=== PATIENT | male | born 1940 | race Caucasian/White ===

== ENCOUNTER 2022-08-07 10:45 | Day surgery (SDC) | payer MEDICARE, SELFPAY ==
[2022-08-07] VITALS (20 sets, daily range): BP systolic 94–134; BP diastolic 51–88; PULSE 68–74; RESP 16; TEMP 35.9–36.8; O2SAT 93–100; BMI 32.9
[2022-08-07] MEDS: ACETAMINOPHEN 500 MG TABLET 1000 MG PO ×3 (11:25→23:54)
[2022-08-07] MEDS: OXYCODONE (CR) 10 MG TAB.ER.12H PO (11:25)
[2022-08-07] MEDS: CELECOXIB 200 MG CAPSULE PO ×2 (11:25→20:57)
[2022-08-07] MEDS: fentaNYL 100 MCG/2 ML inj IVP (11:52)
[2022-08-07] MEDS: MIDAZOLAM HCL 1 MG/ML inj IVP (11:52)
--- NOTE | 2022-08-07 11:59 | P.NB_ITS ---
Nerve Block Nerve Block Time Seen by Provider: 11:50 Date Seen: 08/07/22 Type of block requested by surgeon for post-operative analgesia: adductor canal Side: left Time out performed: Yes Verification of patient name: Yes Verification of date of : Yes Site marking: site marked Name of person performing procedure: Jose Continuous monitoring Was continuous monitoring of O2 sat, B/P, cafeteria monitor, recorded every 15 minutes?: Yes Procedure Checklist: sterile prep, needles and gloves Ultrasound guided. Images saved: Yes Medications given in 5ml increments after negative aspiration: Ropivicaine %: 0.5 mL: 20 Needle gauge: 20 Decadron (mg): 10 Precedex (mcg): 25 Patient tolerated procedure well: Yes Additional comments: Needle noted adjacent to nerve Block Charges Block Charge (with Pro Fee): Femoral Nerve Use of Ultrasound Machine for Block: Yes- US Guidance/pain block
--- NOTE | 2022-08-07 11:59 | W.PM.NB ---
Nerve Block Nerve Block Time Seen by Provider: 11:50 Date Seen: 08/07/22 Type of block requested by surgeon for post-operative analgesia: geniculars Side: left Time out performed: Yes Verification of patient name: Yes Verification of date of : Yes Site marking: site marked Name of person performing procedure: Jose Continuous monitoring Was continuous monitoring of O2 sat, B/P, manager monitoring, recorded every 15 minutes?: Yes Procedure Checklist: sterile prep, needles and gloves Medications given in 5ml increments after negative aspiration: Ropivicaine %: 0.5 mL: 9 Needle gauge: 25 Patient tolerated procedure well: Yes Block Charges Block Charge (with Pro Fee): Genicular Nerve Block Use of Ultrasound Machine for Block: No
--- NOTE | 2022-08-07 12:24 | SUR.PREOP ---
TIME?OUT:?1150 PT/RN/MDA?VERIFICATION?OF?SURGICAL?SITE,?PROCEDURE,?AND?CONSENT OBTAINED?PRIOR?TO?INVASIVE?PROCEDURE.
[2022-08-07] MEDS: LACTATED RINGERS 1000 ML 1,000 ML 100 ML IV (12:26)
[2022-08-07] MEDS: CEFAZOLIN 2 GM INJ IVP (12:30)
--- NOTE | 2022-08-07 13:31 | CRLHL7_ITS ---
For Patients: As a result of the Cures Act, medical imaging exams and procedure reports are released immediately into your electronic medical record. You may view this report before your referring provider. If you have questions, please contact your health care provider. Indication: Postop total knee arthroplasty. Technique: Two views. Comparison: None. Findings/Impression: Post surgical change of total knee arthroplasty. Prosthesis components are in expected position. No evidence of fracture. Postsurgical subcutaneous gas and joint effusion. No radiopaque foreign body. Dictated by Pedrito Rachel MD @ 08/07/2022 7:54:32 PM (Electronically Signed)
--- NOTE | 2022-08-07 13:35 | P.ORPRC_ITS ---
Procedure Note Date of procedure: 08/07/22 Procedure: SURGEON: Gene Bedoya MD LIVESTOCK FEEDER: ROMIE Mitchell PREOPERATIVE DIAGNOSIS: Left knee osteoarthritis POSTOPERATIVE DIAGNOSIS: Left knee osteoarthritis NAME OF OPERATION: Left total knee arthroplasty ANESTHESIA: Spinal ESTIMATED BLOOD LOSS: 0 mL COMPLICATIONS: None SPECIMENS: None DRAINS: None PREOPERATIVE ANTIBIOTICS: Ancef 2 grams IMPLANTS: 1. J&J Attune # 8 posterior stabilized femur 2. # 8 fixed-bearing tibia 3. # 8 posterior stabilized, 5 mm fixed-bearing polyethylene 4. 41 patella INDICATIONS: The patient is a 81-year-old male with a longstanding history of severe, unrelenting left knee pain secondary to end-stage (grade IV) left knee osteoarthritis. Despite appropriate nonoperative management, including activity modification, anti-inflammatories, [id number] pain medication, bracing, physical therapy, and injections they continue to have pain and disability. Operative intervention was offered. The risks, benefits and expected outcomes were discussed in detail. These included but were not limited to: Infection, bleeding, injury to blood vessel or nerve, venous thromboembolism. All questions were answered to their satisfaction. Use of an nutrition services assistant was necessary throughout the case for patient positioning and safety, soft tissue retraction, and closure. PROCEDURE: Spinal anesthesia was administered. The patient was placed supine on the operating table. The nutrition services assistant made sure the patient was positioned appropriately. The lower extremity was prepped and draped in the usual sterile fashion. The limb was exsanguinated with the Faisal bandage. The pneumatic tourniquet was inflated to 300 mmHg. A standard anterior incision was made with the knee in flexion. Subcutaneous dissection was sharply taken through fascial layer #1. Full-thickness medial and lateral flaps were elevated. The nutrition services assistant retracted the soft tissues and protected them throughout the case. A standard medial parapatellar approach was made. The patella was everted. The infrapatellar fat pad was preserved. The menisci and cruciate ligaments were sharply d?brided. Marginal osteophytes were d?brided with the rongeur. The drill was used to penetrate the femoral canal. The canal was aspirated and irrigated with pulse lavage. The intramedullary femoral guide was placed for a 5-degree valgus cut, removing 10 mm off the distal femur. The saw was used to make the cut. Whitesides line and the trans epicondylar axis were marked. The femoral sizing guide was pinned onto the distal femur. Three degrees of external rotation nicely parallels the transepicondylar axis. Pins were placed for posterior referencing. The four-in-one cutting guide was pinned onto the distal femur. The anterior, posterior, and chamfer cuts were made. The nutrition services assistant protected the collateral ligaments. The box cutting guide was pinned. The box cuts were made. The boxed trial was placed and was an excellent fit. Drill holes for the lugs were made. Attention was then turned to the proximal tibia. The extramedullary tibial guide was placed for a neutral varus/valgus cut with 5 degrees of posterior slope, removing 1 mm based off the medial tibial surface. The nutrition services assistant protected the collateral ligaments and the neurovascular bundle. The saw was used to make the cut. Trial components were placed. The knee was nicely balanced in both flexion and extension. The trial components were removed. The tray was placed in appropriate rotation, parallel to our tibial cutting pins. It was pinned by the nutrition services assistant and the drill and the punch were used. The tray was removed. The punch was used again. We placed a bone plug in the femoral canal. Attention was then turned to the patella. [place] patellar thickness was 25 mm. The lobster claw resection guide was used with the 9.5 mm pepe. The saw was us ed to make the cut. Drill holes were made by the nutrition services assistant. The trial was placed and was an excellent fit. Cancellous surfaces were irrigated with pulse lavage and thoroughly dried by the nutrition services assistant. We cemented the tibial component, then the femoral component. A trial spacer was placed. The knee was brought into full extension. We then cemented the patellar component. Excessive cement was removed. The cement was allowed to harden. We impacted the 5 mm polyethylene onto the tibial tray. The knee was taken through a range of motion and was found to be nicely balanced in both flexion a nd extension. The patella tracks centrally. The nutrition services assistant did a three minute dilute Betadine solution soak. The nutrition services assistant irrigated the wound with 3 liters of normal saline via pulse lavage. The a ssistant reapproximated the extensor mechanism with #1 Vicryl in an interrupted nazjsi-sj-hnnku fashion. The nutrition services assistant then ran the extensor mechanism with a #1 PDO Stratafix. The nutrition services assistant closed the subcutaneous tissues with a 3-0 Stratafix and the skin with a running 3-0 Stratafix in a subcuticular fashion. Glue was used to seal the skin. The nutrition services assistant placed a dry dressing, JAYLEN stocking, and Polar Care. Sponge and needle counts were correct x2. The patient tolerated the procedure well. There were no apparent complications. They were carefully transferred to the hospital bed and taken to the postanesthesia care unit in satisfactory condition. PLAN: The patient will be mobilized with physical therapy. The patient is on Coumadin. Therefore, his usual dose of Coumadin can be restarted tomorrow. They will be discharged to home once medically appropriate.
--- NOTE | 2022-08-07 14:17 | W.ANESCHARGE ---
Anesthesia Charges Start Date/Time Anesthesia Start Date: 08/07/22 Anesthesia Start Time: 12:15 Stop Date/Time Anesthesia Stop Date: 08/07/22 Anesthesia Stop Time: 14:13 Summary Emergency: No Extremes of Age: Over 70-CPT 28469
--- NOTE | 2022-08-07 15:31 | W.ANESCHARGE ---
Anesthesia Charges Start Date/Time Anesthesia Start Date: 08/07/22 Anesthesia Start Time: 12:15 Stop Date/Time Anesthesia Stop Date: 08/07/22 Anesthesia Stop Time: 14:13 Summary Emergency: No Extremes of Age: Over 70-CPT 30461
[2022-08-07] MEDS: LACTATED RINGERS 1000 ML 1,000 ML 75 ML IV (15:52)
[2022-08-07] MEDS: OXYCODONE 5 MG TABLET PO ×3 (16:43→20:57)
[2022-08-07] MEDS: CEFAZOLIN 2 GM in 0.9 % SODIUM CHLORIDE Mini-bag 100 ML IVPB (17:38)
--- NOTE | 2022-08-07 19:31 | PM.IMCN1 ---
Date of Consult Consult date: 08/07/22 Primary Care Provider: Ervin Castañeda MD Consult Narrative Narrative: HOSPITALIST CONSULT Hospital Day # 1 Post Op Day # 0 NAME OF OPERATION:? Left total knee arthroplasty ANESTHESIA:? Spinal ESTIMATED BLOOD LOSS:? 0 mL COMPLICATIONS:? None The hospital medicine team was asked by the ortho team to manage the patient's hx of AFIB/SVT, s/p ablations, cardiac pacemaker, prostate cancer, Factor IV Leiden deficiency, PE/DVT hx on oral coumadin history. Pelon is seen on the floor with bedside. He is laughing, comfortable and insightful. I updated the [facility] histories and Medications and Allergies in the Expanse tabs REVIEW OF SYSTEMS: 12-point ROS completed with patient and negative unless otherwise stated in HPI or below. PHYSICAL EXAM: CODE STATUS: FULL CODE CONSTITUTIONAL: Conversive, good historian. A/O. Knows setting and context. VITAL SIGNS: see record. HEENT: Normocephalic, atraumatic. PERRL, EOMI, conjunctivae pink, no scleral icterus. Ears and nose externally normal. Pharynx normal. NECK: No JVD. No carotid bruit, no thyromegaly, no adenopathy. CHEST: Clear to auscultation bilaterally HEART: No harsh murmurs. S1/S2. ABDOMEN: Flat, soft, nontender. Normal bowel sounds. Moderately obese. EXTREMITIES: No edema. MUSCULOSKELETAL: no obvious hematoma; ice wrap on. NVI, lower left extremity. NEURO: Cranial nerves intact. Normal affect. No gross deficits. Speech intelligible. SKIN: No rashes, petechiae, concerning changes PSYCHIATRIC: Euthymic. 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 Chronic anticoagulation Diverticulitis Factor V Leiden mutation H/O prostate cancer History of pulmonary embolism Lupus anticoagulant positive HONORIO (obstructive sleep apnea) Pacemaker Surgical History History of appendectomy (~2002) History of bunionectomy of left great toe (~1984) History of medial meniscus repair of left knee (1962) Hx of total knee arthroplasty Status post ablation of atrial fibrillation Family History Father Prostate cancer Brother Prostate cancer Kidney failure Heart attack Diabetes High blood pressure Mother COPD (chronic obstructive pulmonary disease) High blood pressure Social History Smoking Status: Former smoker What tobacco products do you use: cigarettes Years smoked: 5 Smoking quit date/years: >15 years ago Do you use any of these nicotine containing products: None How often do you have a drink containing alcohol: 2-3 times a week Alcohol type: beer How many standard drinks containing alcohol do you have on a typical day: 1 or 2 How often do you have six or more drinks on one occasion: Never AUDIT-C Alcohol total score: 3 Non-prescribed substance use: denies use Caffeine: Yes (~6 cups/day) Meds Home Medications and Allergies Home Medications Medication Instructions Recorded Confirmed Type acetaminophen 650 mg 1,300 mg PO BID 08/06/22 08/06/22 History tablet,extended release (8 Hour Pain Reliever) atorvastatin 20 mg tablet 20 mg PO HS 08/06/22 08/06/22 History epinephrine 0.3 mg/0.3 mL 0.3 ml IM Q5-15M PRN 08/06/22 08/06/22 History injection, auto-injector (Auvi-Q) famotidine 20 mg tablet 20 mg PO BID 08/06/22 08/06/22 History ibuprofen 125 mg-acetaminophen 250 2 tab PO BID PRN 08/06/22 08/06/22 History mg tablet (Advil Dual Action) pantoprazole 40 mg tablet,delayed 40 mg PO DAILY 08/06/22 08/06/22 History release tamsulosin 0.4 mg capsule 0.8 mg PO HS 08/06/22 08/06/22 History warfarin 5 mg tablet 5 - 7.5 mg PO DAILY 08/06/22 08/06/22 History Allergies Allergy/AdvReac Type Severity Reaction Status Date / Time bee venom protein (honey bee) Allergy Intermediate Verified 07/31/22 08:34 Exam Const: Vital Signs, click to edit/add: Vital Signs - 24 hr 08/07/22 11:20 08/07/22 11:50 08/07/22 12:00 Temperature 98.3 F Pulse Rate 70 70 70 Pulse Rate [Left P ulse Oximeter] Respiratory Rate 16 16 16 Blood Pressure 132/86 134/83 119/77 Blood Pressure [Ri ght Arm] Pulse Oximetry 99 100 100 Oxygen Delivery Me thod Room Air Nasal Cannula Nasal Cannula Oxygen Flow Rate 2 2 08/07/22 14:10 08/07/22 14:15 08/07/22 14:20 Temperature 97.7 F Pulse Rate 70 70 70 Pulse Rate [Left P ulse Oximeter] Respiratory Rate 16 16 16 Blood Pressure 109/74 106/71 109/74 Blood Pressure [Ri ght Arm] Pulse Oximetry 97 97 97 Oxygen Delivery Me thod Room Air Room Air Room Air Oxygen Flow Rate 08/07/22 14:25 08/07/22 14:30 08/07/22 14:35 Temperature Pulse Rate 69 71 68 Pulse Rate [Left P ulse Oximeter] Respiratory Rate 16 16 16 Blood Pressure 107/74 110/75 115/77 Blood Pressure [Ri ght Arm] Pulse Oximetry 97 95 95 Oxygen Delivery Me thod Room Air Room Air Room Air Oxygen Flow Rate 08/07/22 14:47 08/07/22 15:00 08/07/22 15:15 Temperature 96.6 F L Pulse Rate 70 Pulse Rate [Left P ulse Oximeter] 70 70 Respiratory Rate 16 16 16 Blood Pressure Blood Pressure [Ri ght Arm] 120/74 111/76 99/72 Pulse Oximetry 98 93 Oxygen Delivery Me thod Room Air Room Air Room Air Oxygen Flow Rate 08/07/22 15:30 08/07/22 15:45 08/07/22 16:00 Temperature Pulse Rate Pulse Rate [Left P ulse Oximeter] 70 70 70 Respiratory Rate 16 16 16 Blood Pressure Blood Pressure [Ri ght Arm] 107/73 118/88 103/71 Pulse Oximetry 99 98 97 Oxygen Delivery Me thod Room Air Room Air Room Air Oxygen Flow Rate 08/07/22 16:30 08/07/22 17:00 Temperature Pulse Rate Pulse Rate [Left P ulse Oximeter] 70 72 Respiratory Rate 16 16 Blood Pressure Blood Pressure [Ri ght Arm] 94/51 L 115/66 Pulse Oximetry 98 99 Oxygen Delivery Me thod Room Air Room Air Oxygen Flow Rate Assessment and Plan Assessment and plan (1) Hx of total knee arthroplasty: Problem comment: Aureliano 08/04 -hospital medicine team is happy to follow the patient along through to discharge. I am going to restart his Coumadin as he has had a stable postoperative course. We will start his Lovenox bridge in the morning. I will also start telemetry for his history of AFib, SVT and ablation with pacemaker. I expect discharge tomorrow with his . Status: Acute (2) Factor V Leiden mutation: Problem comment: Noted. Status: Acute (3) Chronic anticoagulation: Problem comment: Noted. Coumadin with Lovenox bridge. Status: Acute (4) History of pulmonary embolism: Status: Acute (5) Atrial fibrillation and flutter: Problem comment: Adding telemetry Status: Acute (6) HONORIO (obstructive sleep apnea): Status: Acute (7) Pacemaker: Status: Acute (8) Lupus anticoagulant positive: Status: Acute
--- NOTE | 2022-08-07 19:43 | PC.NURSE ---
PATIENT PLEASANT AND COOPERATIVE, UP ASSIST OF 1 WITH WALKER AND BELT TOLERATING WELL, DRESSING TO LEFT KNEE CDI, CYRO CUFF TO SITE, FAMILY EDUCATED ON HOW TO USE THE CYRO CUFF AT HOME, RATING PAIN IN LEFT KNEE 1-2/10 BEING MANAGED WITH PRN OXYCODONE, FAMILY PRESENT AT BEDSIDE AND SUPPORTIVE, TOLERATING REGULAR DIET WITHOUT NAUSEA OR VOMITING.
--- NOTE | 2022-08-07 20:22 | PC.NURSE ---
Per MD request, discussed Lovenox with patient. He states he has enough Lovenox at home to dose himself through at least Saturday. Dr. Rojas aware. Informed him that a prescription is at his pharmacy if he were to need any additional doses.
[2022-08-07] MEDS: SENNOSIDES 1 TAB TABLET 2 TAB PO (20:57)
[2022-08-07] MEDS: WARFARIN 5 MG TABLET PO (20:57)
--- NOTE | 2022-08-07 22:25 | PC.NURSE ---
[id number] Pt doing very well this evening, ambulating with walker, GB, SBA, tolerates activity well. Pain controlled with prn oral pain medications, pt expressed concerns about becoming addicted, educated pt on appropriate pain med use and pt more relaxed. Ice to L knee, dressing C/D/I, pulses and sensation present. denies N/V
[2022-08-08] MEDS: OXYCODONE 5 MG TABLET PO ×3 (00:57→11:46)
[2022-08-08] MEDS: CEFAZOLIN 2 GM in 0.9 % SODIUM CHLORIDE Mini-bag 100 ML IVPB ×2 (03:11→10:51)
[2022-08-08 03:46] VITALS: BP 110/68; PULSE 73; RESP 16; TEMP 36.5; O2SAT 98
[2022-08-08 04:28] VITALS: PULSE 72
--- NOTE | 2022-08-08 06:20 | PC.NURSE ---
Shift note: Surgical dressing is C/D/I, pulses strong, sensation present. Pt is up with assist of 1 belt and walker. No c/o nausea, voiding, pain 4/10 treated per eMAR with relief to 1-2/10.
[2022-08-08] MEDS: ACETAMINOPHEN 500 MG TABLET 1000 MG PO ×2 (06:34→11:47)
[2022-08-08 06:59] LABS: Basophils Percent Auto 0.1 % (0.0-3.0); Hematocrit 35.8 % (37.0-53.0); Hemoglobin* 11.8 gm/dL (13.5-17.5); Immature Granulocytes Abs Auto 0.02 K/uL (0.00-0.30); Lymphocytes Percent Auto 6.2 % (20-44); Mean Corpuscular HGB Conc 33 gm/dL (32-36); Mean Corpuscular Hemoglobin 33 pg (26-34); Mean Corpuscular Volume 99 fL (80-100); Monocytes Percent Auto 5.4 % (0.0-11.0); Neutrophils Percent Auto 88.1 % (42.0-72.0); Platelet Count* 182 K/uL (140-440); RDW Coefficient of Variation % 13.1 % (11.5-15.5); White Blood Count* 12.56 K/uL (4.50-11.00)
[2022-08-08 07:00] VITALS: BP 136/88; PULSE 76; RESP 18; TEMP 36.9; O2SAT 99
[2022-08-08 07:11] LABS: Slide Review Reflex No
[2022-08-08 07:12] LABS: Potassium* 4.9 mmol/L (3.6-5.1); Sodium* 136 mmol/L (135-149)
[2022-08-08 07:14] LABS: INR 1.02 (0.91-1.10)
[2022-08-08 07:15] LABS: Blood Urea Nitrogen* 19 mg/dL (7-30); Est. Creatinine Clearance* 61.85; Estimated Glomerular Filt Rate 77 ml/min
[2022-08-08] MEDS: CELECOXIB 200 MG CAPSULE PO (08:34)
[2022-08-08] MEDS: ENOXAPARIN 30 MG/0.3ML INJ SUBCUT (08:35)
[2022-08-08] MEDS: FAMOTIDINE 20 MG TABLET PO (08:35)
[2022-08-08] MEDS: SENNOSIDES 1 TAB TABLET 2 TAB PO (08:36)
[2022-08-08] MEDS: OMEPRAZOLE 20 MG CAPSULE DR 40 MG PO (08:36)
--- NOTE | 2022-08-08 08:42 | PM.ORPN ---
Subjective Subjective Time Seen by Provider: 07:15 Date Seen: 08/08/22 Principal diagnosis: Status post left knee replacement Interval history: Pelon is comfortable this morning. He will be discharging to home today with his . He is having breakfast with no nausea and vomiting. Ortho Exam Narrative Exam Narrative: Alert and oriented x3. Patient is in no acute distress. Converses without labored breathing. Hearing is grossly intact. Ambulates with a walker. Examination of the left knee shows the dressing is intact. Very minimal swelling about the left knee. Mild effusion. No sign of infection. No erythema. No ecchymosis. Strong quad strength. CMS intact left lower extremity. Const Vital Signs, click to edit/add: Vital Signs - 24 hr 08/07/22 11:20 08/07/22 11:50 08/07/22 12:00 Temperature 98.3 F Pulse Rate 70 70 70 Pulse Rate [Left Pulse Oximeter] Respiratory Rate 16 16 16 Blood Pressure 132/86 134/83 119/77 Blood Pressure [Right Arm] Pulse Oximetry 99 100 100 Oxygen Delivery Method Room Air Nasal Cannula Nasal Cannula Oxygen Flow Rate 2 2 08/07/22 14:10 08/07/22 14:15 08/07/22 14:20 Temperature 97.7 F Pulse Rate 70 70 70 Pulse Rate [Left Pulse Oximeter] Respiratory Rate 16 16 16 Blood Pressure 109/74 106/71 109/74 Blood Pressure [Right Arm] Pulse Oximetry 97 97 97 Oxygen Delivery Method Room Air Room Air Room Air Oxygen Flow Rate 08/07/22 14:25 08/07/22 14:30 08/07/22 14:35 Temperature Pulse Rate 69 71 68 Pulse Rate [Left Pulse Oximeter] Respiratory Rate 16 16 16 Blood Pressure 107/74 110/75 115/77 Blood Pressure [Right Arm] Pulse Oximetry 97 95 95 Oxygen Delivery Method Room Air Room Air Room Air Oxygen Flow Rate 08/07/22 14:47 08/07/22 15:00 08/07/22 15:15 Temperature 96.6 F L Pulse Rate 70 Pulse Rate [Left Pulse Oximeter] 70 70 Respiratory Rate 16 16 16 Blood Pressure Blood Pressure [Right Arm] 120/74 111/76 99/72 Pulse Oximetry 98 93 Oxygen Delivery Method Room Air Room Air Room Air Oxygen Flow Rate 08/07/22 15:30 08/07/22 15:45 08/07/22 16:00 Temperature Pulse Rate Pulse Rate [Left Pulse Oximeter] 70 70 70 Respiratory Rate 16 16 16 Blood Pressure Blood Pressure [Right Arm] 107/73 118/88 103/71 Pulse Oximetry 99 98 97 Oxygen Delivery Method Room Air Room Air Room Air Oxygen Flow Rate 08/07/22 16:30 08/07/22 17:00 08/07/22 18:00 Temperature Pulse Rate Pulse Rate [Left Pulse Oximeter] 70 72 70 Respiratory Rate 16 16 16 Blood Pressure Blood Pressure [Right Arm] 94/51 L 115/66 125/69 Pulse Oximetry 98 99 97 Oxygen Delivery Method Room Air Room Air Room Air Oxygen Flow Rate 08/07/22 19:00 08/08/22 03:46 08/07/22 23:00 Temperature 97.7 F Pulse Rate Pulse Rate [Left Pulse Oximeter] 74 73 73 Respiratory Rate 16 16 Blood Pressure Blood Pressure [Right Arm] 121/75 110/68 Pulse Oximetry 96 98 Oxygen Delivery Method Room Air Room Air Oxygen Flow Rate 08/08/22 04:28 Temperature Pulse Rate 72 Pulse Rate [Left Pulse Oximeter] Respiratory Rate Blood Pressure Blood Pressure [Right Arm] Pulse Oximetry Oxygen Delivery Method Oxygen Flow Rate Assessment and Plan Assessment and plan (1) Hx of total knee arthroplasty: Problem details: Date of surgery 08/07/2022, left total knee arthroplasty Status: Acute Assessment and Plan: Plan for discharge is today to home if they meet discharge criteria. DVT prophylaxis includes warfarin with Lovenox bridging, Tre stockings x1 month may remove for 1 hr per day, frequent ambulation. Patient has 12 syringes of Lovenox. He will use the Lovenox until his INR is appropriate. He has an appointment for INR checked tomorrow. His family doctor will monitor and dose his warfarin. He is on warfarin for pulmonary embolism history. Remove dressing in 1 week. Observe wound and phone Orthopedics with any questions or concerns Return to clinic in 1 week for a wound check Return to clinic in [address] Bedoya Minimize narcotic use. Wean off and discontinue soon as possible. Activities as tolerated. No strenuous activity. Outpatient physical therapy as scheduled. Ice and elevate the operative extremity. No restriction on ice. (2) Factor V Leiden mutation: Problem details: Noted. Status: Acute (3) Chronic anticoagulation: Problem details: Noted. Coumadin with Lovenox bridge. Status: Acute (4) History of pulmonary embolism: Status: Acute (5) Atrial fibrillation and flutter: Problem details: Adding telemetry Status: Acute (6) HONORIO (obstructive sleep apnea): Status: Acute (7) Pacemaker: Status: Acute (8) Lupus anticoagulant positive: Status: Acute
[2022-08-08 10:10] VITALS: BP 115/77; PULSE 72; RESP 16; TEMP 36.5
[2022-08-08 10:31] VITALS: BP 115/77; PULSE 72; RESP 16; TEMP 36.5
--- NOTE | 2022-08-08 10:54 | PM.DS1 ---
DS: Providers Provider Date Seen: 08/08/22 Primary care physician: Ervin Castañeda MD Attending Physician on discharge: Gene Bedoya MD Date of Discharge: 08/08/22 DS: Diagnosis Discharge Diagnosis (1) Hx of total knee arthroplasty: Status: Acute Problem details: Date of surgery 08/07/2022, left total knee arthroplasty (2) History of pulmonary embolism: Status: Acute (3) Factor V Leiden mutation: Status: Acute Problem details: Noted. (4) Chronic anticoagulation: Status: Acute Problem details: Noted. Coumadin with Lovenox bridge. (5) Lupus anticoagulant positive: Status: Acute (6) Atrial fibrillation and flutter: Status: Acute Problem details: Adding telemetry DS: Summary Hospital Course Hospital Course: 81-year-old male admitted to the hospital for left total knee arthroplasty. Procedure was performed on the day of admission by Dr. Bdeoya. There were no operative complications. He has had no postoperative complications. He has had no significant problems with pain management. He has been eating and drinking normally. He has done well with physical therapy. Patient has multiple risk factors for thromboembolic complications including atrial fibrillation, previous pulmonary embolism, lupus anticoagulant and factor 5 Leiden mutation. Because of this he was bridged with prophylactic enoxaparin 30 mg subcutaneously b.i.d.. The plan is for this to continue until his INR is therapeutic. He already has arrangements with the nurse who manages his anticoagulation for tomorrow. Status at Discharge Functional status at discharge: uses cane/walker Overall status at discharge: patient is progressing back to baseline Time Spent with Patient Time attestation: Total time spent providing and/or coordinating discharge services: Time spent: Less than 30 minutes Exam Narrative: Exam Narrative: He is alert and in no distress. Mood and affect are bright. Breathing is unlabored. He moves well with therapy. No significant edema. Intact pulses and strength in his feet. Const: Vital Signs, click to edit/add: Vital Signs - 24 hr 08/07/22 11:20 08/07/22 11:50 08/07/22 12:00 Temperature 98.3 F Pulse Rate 70 70 70 Pulse Rate [Left P ulse Oximeter] Respiratory Rate 16 16 16 Blood Pressure 132/86 134/83 119/77 Blood Pressure [Ri ght Arm] Pulse Oximetry 99 100 100 Oxygen Delivery Me thod Room Air Nasal Cannula Nasal Cannula Oxygen Flow Rate 2 2 08/07/22 14:10 08/07/22 14:15 08/07/22 14:20 Temperature 97.7 F Pulse Rate 70 70 70 Pulse Rate [Left P ulse Oximeter] Respiratory Rate 16 16 16 Blood Pressure 109/74 106/71 109/74 Blood Pressure [Ri ght Arm] Pulse Oximetry 97 97 97 Oxygen Delivery Me thod Room Air Room Air Room Air Oxygen Flow Rate 08/07/22 14:25 08/07/22 14:30 08/07/22 14:35 Temperature Pulse Rate 69 71 68 Pulse Rate [Left P ulse Oximeter] Respiratory Rate 16 16 16 Blood Pressure 107/74 110/75 115/77 Blood Pressure [Ri ght Arm] Pulse Oximetry 97 95 95 Oxygen Delivery Me thod Room Air Room Air Room Air Oxygen Flow Rate 08/07/22 14:47 08/07/22 15:00 08/07/22 15:15 Temperature 96.6 F L Pulse Rate 70 Pulse Rate [Left P ulse Oximeter] 70 70 Respiratory Rate 16 16 16 Blood Pressure Blood Pressure [Ri ght Arm] 120/74 111/76 99/72 Pulse Oximetry 98 93 Oxygen Delivery Me thod Room Air Room Air Room Air Oxygen Flow Rate 08/07/22 15:30 08/07/22 15:45 08/07/22 16:00 Temperature Pulse Rate Pulse Rate [Left P ulse Oximeter] 70 70 70 Respiratory Rate 16 16 16 Blood Pressure Blood Pressure [Ri ght Arm] 107/73 118/88 103/71 Pulse Oximetry 99 98 97 Oxygen Delivery Me thod Room Air Room Air Room Air Oxygen Flow Rate 08/07/22 16:30 08/07/22 17:00 08/07/22 18:00 Temperature Pulse Rate Pulse Rate [Left P ulse Oximeter] 70 72 70 Respiratory Rate 16 16 16 Blood Pressure Blood Pressure [Ri ght Arm] 94/51 L 115/66 125/69 Pulse Oximetry 98 99 97 Oxygen Delivery Me thod Room Air Room Air Room Air Oxygen Flow Rate 08/07/22 19:00 08/08/22 03:46 08/07/22 23:00 Temperature 97.7 F Pulse Rate Pulse Rate [Left P ulse Oximeter] 74 73 73 Respiratory Rate 16 16 Blood Pressure Blood Pressure [Ri ght Arm] 121/75 110/68 Pulse Oximetry 96 98 Oxygen Delivery Me thod Room Air Room Air Oxygen Flow Rate 08/08/22 04:28 08/08/22 10:10 08/08/22 10:31 Temperature 97.7 F 97.7 F Pulse Rate 72 72 72 Pulse Rate [Left P ulse Oximeter] Respiratory Rate 16 16 Blood Pressure 115/77 115/77 Blood Pressure [Ri ght Arm] Pulse Oximetry Oxygen Delivery Me thod Oxygen Flow Rate Documenting provider has reviewed patient's vital signs: yes DS: Data Data Completed and Pending Labs on day of discharge: Labs from last 24 hours 08/08/22 08/08/22 08/08/22 06:19 06:19 06:19 WBC 12.56 H RBC 3.60 L Hgb 11.8 L Hct 35.8 L MCV 99 MCH 33 MCHC 33 RDW Coeff of Dora 13.1 Plt Count 182 Neut % (Auto) 88.1 H Lymph % (Auto) 6.2 L [place] % (Auto) 5.4 Eos % (Auto) 0.0 Baso % (Auto) 0.1 Neut # (Auto) 11.10 H Lymph # (Auto) 0.80 L [place] # (Auto) 0.70 Eos # (Auto) 0.00 Baso # (Auto) 0.00 Abs Immat Gran (auto) 0.02 INR 1.02 Sodium 136 Potassium 4.9 BUN 19 Creatinine 1.0 Estimated Creat Clear 61.85 Estimated GFR 77 Discharge Plan Discharge Disposition: Home, Self-Care Discharging Surgeon: Gene Bedoya Follow-Up Appointment: 1 week Prescriptions: New enoxaparin [Lovenox] 30 mg/0.3 mL syringe 30 mg subcut Q12H Qty: 3 0RF Rx Instructions: until INR is 2-3, take coumadin daily acetaminophen 500 mg Tablet 500 - 1,000 mg PO Q6H PRN (Reason: pain) Qty: 100 0RF oxycodone 5 mg Tablet 2.5 - 5 mg PO Q4-6H MDD 6 tabs per day PRN (Reason: Pain) Qty: 42 0RF Rx Instructions: minimize and discontinue as soon as possible sennosides [Senna Lax] 8.6 mg Tablet 17.2 mg PO BID PRN (Reason: constipation) Qty: 100 0RF Rx Instructions: for narcotic related constipation Continued acetaminophen [8 Hour Pain Reliever] 650 mg tablet extended release 1,300 mg PO BID atorvastatin 20 mg tablet 20 mg PO HS Label Comments: TAKE 1 TABLET BY MOUTH AT BEDTIME epinephrine [Auvi-Q] 0.3 mg/0.3 mL auto-injector 0.3 ml IM Q5-15M PRN famotidine 20 mg tablet 20 mg PO BID pantoprazole 40 mg tablet,delayed release (DR/EC) 40 mg PO DAILY Label Comments: TAKE 1 TABLET BY MOUTH ONCE DAILY tamsulosin 0.4 mg capsule 0.8 mg PO HS Label Comments: TAKE 2 CAPSULES BY MOUTH EVERY EVENING warfarin 5 mg tablet 5 - 7.5 mg PO DAILY Rx Instructions: 7.5 mg Sat-Sat-Sat 5 mg other days Discontinued Advil Dual Action 125-250 mg tablet 2 tab PO BID PRN Activity Level: Activity as Tolerated and No strenuous activity Activity Detail: Keep dressing on for 1 week. Dressing is waterproof. May shower. Surgical glue covers the wound. Attend outpatient physical therapy if scheduled. Ice and elevate operative extremity without restriction. Wear compression stockings for 1 month post surgery. May remove for 1 hour per day. Ambulate every hour throughout the day. If you drive, Do not drive while taking narcotic pain medication. Do not drink alcohol while taking narcotic pain medication. May drive when safe to do so and have full function of the extremities, this may take 6 weeks or more. Notify Orthopedics with any questions or concerns. ([phone]) Follow-up at the INR clinic tomorrow and as recommended by the INR nurse. Patient Instructions: Acetaminophen (By mouth), Oxycodone, Rapid Release (By mouth), Enoxaparin (By injection) (Lovenox), Senna (By mouth), Precautions after Total Joint Replacement Surgery (DC), Knee Replacement (DC) Additional Instructions: pt states INR is scheduled for tomorrow, coordinate with his family provider to monitor and dose Warfarin. He has 12 syringes of Lovenox and will bridge with Lovenox until his INR is appropriate level. Forms: Work/Release Restrictions Follow-up: Lisa, Physical Therapy [Other] - 08/10/22 9:00 am Sonja Cervantes PA-C [Physician [employer] Worker] - 08/15/22 11:00 am ([facility]) Ervin Castañeda MD [Primary Care Provider] - (Schedule appointment as needed.) Discharge Orders: Discharge Order (Routine); Ordered 08/08/22 Ordered By: Beatriz Langston
[2022-08-08] MEDS: TAMSULOSIN HCL 0.4 MG CAPSULE 0.8 MG PO (11:21)
--- NOTE | 2022-08-08 14:32 | PC.NURSE ---
shift note: vss stable.pain controlled with oxycodone and tylenol x2. Pt has intact PP and cms. pt using IS to 1999. pt 1/walker assist with transfers. [place] to lt knee c/d/i. Reviewed dc instructions and copies sent with pt. Belongings reviewed and sent with pt at dc. IV dc'd intact Lt FA.
--- NOTE | 2022-08-08 14:33 | PC.NURSE ---
shift note: pt stated that he has self injected lovenox before and doesn't need further teaching
== END 2022-08-08 12:30 | disposition home or self-care (01) ==
LOC: OR 10:46 → MEDSURG 10:49
PROVIDERS: PCP Family Medicine; Visit Provider Orthopaedic Surgery
PROC: (CPT 27447; principal; 2022-08-07 12:30)
DX: M17.12 Unilateral primary osteoarthritis, left knee (principal); I48.20 Chronic atrial fibrillation, unspecified; Z95.0 Presence of cardiac pacemaker; D68.51 Activated protein C resistance; Z86.711 Personal history of pulmonary embolism; Z79.01 Long term (current) use of anticoagulants; I48.92 Unspecified atrial flutter; G47.33 Obstructive sleep apnea (adult) (pediatric); R76.0 Raised antibody titer; Z86.718 Personal history of other venous thrombosis and embolism
CPT/HCPCS: 27447; 01402; 36415; 64447; 64454; 73560; 76942; 82565; 84132; 84295; 84520; 85025; 85610; 97110; 97116; 97161; 97165; 97535; 99100; G0378; A9270; C1776; J0690; J1100; J1650; J2250; J2405; J2704; J2795; J3010; J7120

== ENCOUNTER 2022-10-26 07:30 | Outpatient (RCR) | payer MEDICARE, SELFPAY ==
--- NOTE | 2022-08-01 14:53 | PT.OPEX ---
PT [facility] Eval PT [facility] Out[facility] Eval Start: 08/01/22 14:32 Freq: Status: Active Protocol: Document 08/01/22 14:33 SRUTHI (Rec: 08/01/22 14:48 SRUTHI [id number]) E-signed By Mercy Méndez DPT Physical Therapy Outpatient Evaluation Insurance Information Recert Due Date 10/30/22 Insurance Name Medicare B,Blue [employer] Medical Diagnosis L knee OA, pain L TKA 08/07/22 Treating Diagnosis L knee pain, impaired L knee ROM, impaired L knee/LE mobility/strength, limited tolerance for extended standing/walking, limping gait Subjective Subjective Patient reports hx of chronic L knee pain. States he was going to PT a few years ago and getting ready to have L TKA but his provider retired so he held off on the surgery. He is now scheduled for L TKA 08/07/22. Patient reports increased pain with activity, weightbearing. Pain rated 5/ 10. He reports limited tolerance for standing/walking /stairs. He has not been using an AD but states he has a SPC and 4ww to use. He does not have a FWW. Date of Last Physician Visit 03/30/22 Date of Surgery (If applicable) 08/07/22 Current Work Status Retired Preferred Name Pelon Ramirez Treatment Precautions/Contraindications heart condition/pacemaker, OA, cancer Assessment Assessment/Impression Patient is a 81 year old male with L knee pain, impaired L knee ROM, impaired L knee/LE mobility/strength, limited tolerance for extended standing/walking, limping gait . Pain rated 5/10. Patient seen in PT today for pre-op session to provide education/ information on upcoming TKA surgery, safety information/HO , equipment instruction including use of FWW, and instruction in TKA exercises. Handouts issued for exercises , patient to perform them leading up to surgery. Reviewed PT/OT plan during hospital stay and patient is scheduled for OP PT post op. Spouse is present for PT session today and will be able to assist at home as needed after surgery. Patient reports 2 stairs to enter the home, no railing. Once inside , patient can stay on the main level. The bedroom is on the lower level with a full flight of stairs so patient is planning to stay on the main floor initially. There is a bathroom on the main and lower level, walk in showers with a seat. Patient has a SPC and 4ww. He hasn't been using an AD for ambulation. Patient will look into borrowing a FWW , he may need FWW issued at hospital d/c. Patient would benefit from skilled PT for pain/sx management, improved knee ROM, improved knee/LE mobility/strength, improved gait, balance/proprioception training, and establishment of HEP. Plan of Care Rehabilitation Potential Good Physical Therapy Goals 1. Patient will be educated in TKA pre/post-op safety, mobility, and exercises with HOs provided within one visit with patient returning to PT for post op treatment after L TKA surgery on 08/07/22. PT goals will be updated to TKA rehab goals when patient returns post op. Coordination/Communication With Referral Source Treatment Plan/Direct Interventions Gait Training,Manual Therapy, Therapeutic Exercises Frequency/Duration one pre-op session, 2x/week post op for 8-10 weeks Patient Will Be Discharged From Therapy Completion of LTG(s),Skills Plateau,Independent w/HEP, Independently Progressing Evaluation Billing Untimed Code Treatment Minutes 36 Complexity Moderate Certification Information Initial Certification Date 08/01/22 Ending Certification Date 10/30/22 Provider Signature Shows Agreement With POC & Medical Necessity Physician Signature & Date Requested Please Sign/Date Here Physician Comment/Change : Physician NPI Number #
== END 2023-02-01 11:20 | disposition home or self-care (01) ==
PROVIDERS: Visit Provider Orthopaedic Surgery
DX: M25.562 Pain in left knee (principal); M17.12 Unilateral primary osteoarthritis, left knee; Z98.890 Other specified postprocedural states; R26.89 Other abnormalities of gait and mobility; Z51.89 Encounter for other specified aftercare
CPT/HCPCS: 97110; 97162; 97164

== ENCOUNTER 2023-07-28 15:13 | Emergency (ER) | payer MEDICARE, SELFPAY ==
[2023-07-28] VITALS (20 sets, daily range): BP systolic 109–165; BP diastolic 58–80; PULSE 70–78; RESP 16; TEMP 36.6; O2SAT 92–98
--- NOTE | 2023-07-28 15:55 | ED.NURSE ---
ekg done #20 sl placed R ac, blood drawn off iv start
--- NOTE | 2023-07-28 16:08 | CRLHL7_ITS ---
For Patients: As a result of the Century Cures Act, medical imaging exams and procedure reports are released immediately into your electronic medical record. You may view this report before your referring provider. If you have questions, please contact your health care provider. HISTORY: Near syncope. Recent valve replacement. History of prior pulmonary embolism. TECHNIQUE: Intravenous contrast enhanced CT of the chest. 95 mL Isovue-370 intravenous contrast was administered. COMPARISON: No prior. FINDINGS: No acute pulmonary embolism. Patient is status post TAVR. Coronary artery calcifications are present. No significant pericardial effusion. Two lead pacer device. Leads terminate within the right atrium and right ventricle. - Pulmonary emphysema. There are areas of subpleural reticulation and ground-glass opacity. Some are present within nondependent portions of the lungs suggesting interstitial lung disease and potentially fibrosis. 5 mm right middle lobe pulmonary nodule image #116 of series 4. 3 mm left upper lobe pulmonary nodule image #59. 5 mm left lower lobe pulmonary nodule. No pleural effusion or pneumothorax. - Colonic diverticulosis. - Degenerative changes of the spine. No acute fractures. IMPRESSION: 1. No acute pulmonary embolism. 2. Findings of TAVR. 3. Subpleural ground-glass and reticular opacities within the lungs which may relate to interstitial lung disease and fibrosis. 4. Mild pulmonary emphysema. 5. No lung consolidation. 6. A few small pulmonary nodules. Dictated by Cas Ahuja MD @ 07/28/2023 5:23:04 PM Please note that all CT scans at this facility use dose modulation, iterative reconstruction, and/or weight-based dosing when appropriate to reduce radiation dose to as low as reasonably achievable. Dictated by: Cas Ahuja MD @ 07/28/2023 17:23:10 (Electronically Signed)
[2023-07-28 16:25] LABS: Lactate* 1.4 mmol/L (0.5-1.9)
[2023-07-28 16:27] LABS: Basophils Absolute Auto 0.04 K/uL (0.00-0.30); Basophils Percent Auto 0.7 % (0.0-3.0); Eosinophils Absolute Auto 0.26 K/uL (0.00-0.50); Eosinophils Percent Auto 4.3 % (0.0-7.0); Hematocrit 38.6 % (37.0-53.0); Hemoglobin* 12.9 gm/dL (13.5-17.5); Immature Granulocytes Abs Auto 0.01 K/uL (0.00-0.30); Immature Granulocytes Pct Auto 0.2 %; Lymphocytes Absolute Auto 1.63 K/uL (0.90-2.90); Lymphocytes Percent Auto 26.7 % (20-44); Mean Corpuscular HGB Conc 33 gm/dL (32-36); Mean Corpuscular Hemoglobin 33 pg (26-34); Mean Corpuscular Volume 98 fL (80-100); Monocytes Percent Auto 7.5 % (0.0-11.0); Neutrophils Percent Auto 60.6 % (42.0-72.0); Platelet Count* 191 K/uL (140-440); Red Blood Count 3.94 m/uL (4.30-5.90)
[2023-07-28 16:29] LABS: Slide Review Reflex No
--- NOTE | 2023-07-28 16:30 | ED_ITS ---
HPI - General Adult General Date Seen: 07/28/23 Chief complaint: Chest Pain Stated complaint: fainting Time Seen by Provider: 07/28/23 15:58 Source: patient Mode of arrival: ambulatory Limitations: no limitations History of Present Illness HPI narrative: Patient is an 82-year-old male here with his for evaluation of near syncope at home. He says he was sitting watching the [employer] when he started to feel like he might faint. Faint feeling lasted for perhaps 5 minutes. At some point during that time he started to feel short of breath and developed some pain in his upper left arm as well. The faint feeling dissipated and shortly thereafter the pain in his left arm went away as well. He says he has had a couple of episodes since arriving here of feeling faint briefly as well. He has not had any syncope and has not had chest pain. He has a history of atrial fibrillation and a pacemaker which apparently needs to be replaced. He has a recent history of aortic valve replacement at [facility], this was done 3 weeks ago. He has historically been maintained on Coumadin secondary to history of PE as well as atrial fibrillation, he was off his Coumadin for about 4 days around the time of surgery but has since resumed normal dosing. He denies any new leg pain or swelling, his 1 ankle is chronically little bigger than the other and he says he has some numbness around the knee that was replaced in the past but these are old symptoms. He has not had fever cough, he has not had vomiting or diarrhea. No black or bloody stools. Related Data Home Medications Medication Instructions Recorded Confirmed acetaminophen 650 mg 1,300 mg PO BID 08/06/22 02/06/23 tablet,extended release (8 Hour Pain Reliever) atorvastatin 20 mg tablet 20 mg PO HS 08/06/22 02/06/23 epinephrine 0.3 mg/0.3 mL 0.3 ml IM Q5-15M PRN 08/06/22 02/06/23 injection, auto-injector (Auvi-Q) famotidine 20 mg tablet 20 mg PO BID 08/06/22 02/06/23 pantoprazole 40 mg tablet,delayed 40 mg PO DAILY 08/06/22 02/06/23 release tamsulosin 0.4 mg capsule 0.8 mg PO HS 08/06/22 02/06/23 warfarin 5 mg tablet 5 - 7.5 mg PO DAILY 08/06/22 02/06/23 Previous Rx's Medication Instructions Recorded acetaminophen 500 mg tablet 500 - 1,000 mg (1 - 2 x 500 mg) PO 08/08/22 Q6H PRN pain #100 tabs Allergies Allergy/AdvReac Type Severity Reaction Status Date / Time bee venom protein (honey bee) Allergy Intermediate Anaphylaxis Verified 07/28/23 17:05 Review of Systems Status of ROS: Reports: 10 or more systems reviewed and unremarkable except as noted in History and below [facility] Medical History 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 - Toxic effect of venom of bees, accidental (unintentional), initial encounter (ICD-10) Lupus anticoagulant positive ?R76.0 - Raised antibody titer (ICD-10) Pacemaker ?Z95.0 - Presence of cardiac pacemaker (ICD-10) HONORIO (obstructive sleep apnea) ?G47.33 - Obstructive sleep apnea (adult) (pediatric) (ICD-10) Atrial fibrillation and flutter ?I48.91 - Unspecified atrial fibrillation (ICD-10) ?I48.92 - Unspecified atrial flutter (ICD-10) H/O prostate cancer ?Z85.46 - Personal history of malignant neoplasm of prostate (ICD-10) History of pulmonary embolism ?Z86.711 - Personal history of pulmonary embolism (ICD-10) Factor V Leiden mutation ?D68.51 - Activated protein C resistance (ICD-10) Chronic anticoagulation ?Z79.01 - half-way (current) use of anticoagulants (ICD-10) Diverticulitis ?K57.92 - Diverticulitis of intestine, part unspecified, without perforation or abscess without bleeding (ICD-10) Surgical History Hx of total knee arthroplasty (08/07/22) ?Z96.659 - Presence of unspecified artificial knee joint (ICD-10) Status post ablation of atrial fibrillation ?Z98.890 - Other specified postprocedural states (ICD-10) ?Z86.79 - Personal history of other diseases of the circulatory system (ICD- 10) History of appendectomy (~2002) ?Z90.49 - Acquired absence of other specified parts of digestive tract (ICD- 10) History of bunionectomy of left great toe (~1984) ?Z98.890 - Other specified postprocedural states (ICD-10) History of medial meniscus repair of left knee (1962) ?Z98.890 - Other specified postprocedural states (ICD-10) Family History Father Prostate cancer Brother Prostate cancer Kidney failure Myocardial infarction Diabetes High blood pressure Mother COPD (chronic obstructive pulmonary disease) High blood pressure Social History Smoking Status: Never smoker Do you use any of these nicotine containing products: None How often do you have a drink containing alcohol: 2-3 times a week Alcohol type: beer How many standard drinks containing alcohol do you have on a typical day: 1 or 2 How often do you have six or more drinks on one occasion: Never AUDIT-C Alcohol total score: 3 Non-prescribed substance use: denies use Caffeine: Yes (~6 cups/day) Exam Narrative: Exam Narrative: Vital signs as noted above. In general, an alert, well-appearing patient. Conversant, cooperative. Head: Normocephalic, atraumatic. Eyes: Pupils are equal reactive. Extraocular movements are full. Conjunctivae are normal. ENT: Mucous membranes are moist. Throat is normal. Neck: Supple without lymphadenopathy. Heart: Regular rate and rhythm. No significant murmur. No click. Lungs: Clear bilaterally. No increased work of breathing, crackles or wheezes. Abdomen: Soft and nontender. No organomegaly. Extremities: Well perfused. No edema. No calf tenderness. Pulses intact. Neurologic: Patient is alert and oriented to person and place. Speech is fluent. Face is symmetric. Moves all extremities equally. Affect: Normal. Skin: Warm and dry. Well perfused. Const: Vital Signs, click to edit/add: Vital Signs - 24 hr 07/28/23 15:31 07/28/23 15:33 07/28/23 15:48 Temperature 97.9 F Pulse Rate 71 71 Pulse Rate [Pulse Oximeter] 73 Pulse Rate [orthos tatic lying Pulse Oximeter] Pulse Rate [orthos tatic sitting Puls e Oximeter] Pulse Rate [orthos tatic standing Pul se Oximeter] Respiratory Rate 16 Blood Pressure 124/71 Blood Pressure [Ri ght Upper Arm] 165/80 H Blood Pressure [or thostatic lying Le ft Arm] Blood Pressure [or thostatic sitting Left Arm] Blood Pressure [or thostatic standing Left Arm] Pulse Oximetry 98 97 96 Oxygen Delivery Me thod Room Air 07/28/23 16:00 07/28/23 16:02 07/28/23 16:30 Temperature Pulse Rate 72 70 72 Pulse Rate [Pulse Oximeter] Pulse Rate [orthos tatic lying Pulse Oximeter] Pulse Rate [orthos tatic sitting Puls e Oximeter] Pulse Rate [orthos tatic standing Pul se Oximeter] Respiratory Rate Blood Pressure 116/67 Blood Pressure [Ri ght Upper Arm] Blood Pressure [or thostatic lying Le ft Arm] Blood Pressure [or thostatic sitting Left Arm] Blood Pressure [or thostatic standing Left Arm] Pulse Oximetry 94 95 94 Oxygen Delivery Me thod 07/28/23 16:32 07/28/23 16:33 07/28/23 16:47 Temperature Pulse Rate 72 70 73 Pulse Rate [Pulse Oximeter] Pulse Rate [orthos tatic lying Pulse Oximeter] Pulse Rate [orthos tatic sitting Puls e Oximeter] Pulse Rate [orthos tatic standing Pul se Oximeter] Respiratory Rate Blood Pressure 129/68 129/69 Blood Pressure [Ri ght Upper Arm] Blood Pressure [or thostatic lying Le ft Arm] Blood Pressure [or thostatic sitting Left Arm] Blood Pressure [or thostatic standing Left Arm] Pulse Oximetry 92 94 96 Oxygen Delivery Me thod 07/28/23 16:49 07/28/23 16:50 07/28/23 16:51 Temperature Pulse Rate 78 77 74 Pulse Rate [Pulse Oximeter] Pulse Rate [orthos tatic lying Pulse Oximeter] Pulse Rate [orthos tatic sitting Puls e Oximeter] Pulse Rate [orthos tatic standing Pul se Oximeter] Respiratory Rate Blood Pressure 123/70 109/58 L Blood Pressure [Ri ght Upper Arm] Blood Pressure [or thostatic lying Le ft Arm] Blood Pressure [or thostatic sitting Left Arm] Blood Pressure [or thostatic standing Left Arm] Pulse Oximetry 96 97 96 Oxygen Delivery Me thod 07/28/23 16:57 07/28/23 17:00 07/28/23 17:02 Temperature Pulse Rate 71 Pulse Rate [Pulse Oximeter] Pulse Rate [orthos tatic lying Pulse Oximeter] 71 Pulse Rate [orthos tatic sitting Puls e Oximeter] 75 Pulse Rate [orthos tatic standing Pul se Oximeter] 76 Respiratory Rate Blood Pressure 125/68 Blood Pressure [Ri ght Upper Arm] Blood Pressure [or thostatic lying Le ft Arm] 129/69 Blood Pressure [or thostatic sitting Left Arm] 123/70 Blood Pressure [or thostatic standing Left Arm] 109/58 L Pulse Oximetry 97 Oxygen Delivery Me thod 07/28/23 17:30 07/28/23 17:32 07/28/23 17:33 Temperature Pulse Rate 71 70 72 Pulse Rate [Pulse Oximeter] Pulse Rate [orthos tatic lying Pulse Oximeter] Pulse Rate [orthos tatic sitting Puls e Oximeter] Pulse Rate [orthos tatic standing Pul se Oximeter] Respiratory Rate Blood Pressure 134/72 Blood Pressure [Ri ght Upper Arm] Blood Pressure [or thostatic lying Le ft Arm] Blood Pressure [or thostatic sitting Left Arm] Blood Pressure [or thostatic standing Left Arm] Pulse Oximetry 97 96 95 Oxygen Delivery Me thod 07/28/23 18:00 07/28/23 18:02 Temperature Pulse Rate 71 71 Pulse Rate [Pulse Oximeter] Pulse Rate [orthos tatic lying Pulse Oximeter] Pulse Rate [orthos tatic sitting Puls e Oximeter] Pulse Rate [orthos tatic standing Pul se Oximeter] Respiratory Rate Blood Pressure 143/74 H Blood Pressure [Ri ght Upper Arm] Blood Pressure [or thostatic lying Le ft Arm] Blood Pressure [or thostatic sitting Left Arm] Blood Pressure [or thostatic standing Left Arm] Pulse Oximetry 95 96 Oxygen Delivery Me thod Documenting provider has reviewed patient's vital signs: yes Course Course ED Course: EKG done shortly after patient's arrival shows what appears to be an atrial paced rhythm, ventricular rate of 75 beats per minute. He has a widened QRS at 150 milliseconds. He does not meet full criteria for left bundle-branch block. He has ST elevation in the precordial leads primarily V1 through V4, not on consistent with the degree of QRS voltage in the opposite direction. I do not see any reciprocal depression. The previous EKG that we have is from 2016 at which time he did not have a pacemaker, and was normal at that time without intraventricular block. Labs including point of care troponin are pending. Di agnostic considerations include acute coronary syndrome, arrhythmia, PE, congestive heart failure, anemia, dehydration among others. I elected did do a CT scan of the chest given his history of PE and the fact that he was off of his Coumadin for little bit. He was slightly subtherapeutic in terms of his INR as well at 1.74. CT scan by my review did not show any evidence of pulmonary embolism. Final radiology read is as follows:FINDINGS: No acute pulmonary embolism. Patient is status post TAVR. Coronary artery calcifications are present. No significant pericardial effusion. Two lead pacer device. Leads terminate within the right atrium and right ventricle. - Pulmonary emphysema. There are areas of subpleural reticulation and ground-glass opacity. Some are present within nondependent portions of the lungs suggesting interstitial lung disease and potentially fibrosis. 5 mm right middle lobe pulmonary nodule image #116 of series 4. 3 mm left upper lobe pulmonary nodule image #59. 5 mm left lower lobe pulmonary nodule. No pleural effusion or pneumothorax. - Colonic diverticulosis. - Degenerative changes of the spine. No acute fractures. IMPRESSION: 1. No acute pulmonary embolism. 2. Findings of TAVR. 3. Subpleural ground-glass and reticular opacities within the lungs which may relate to interstitial lung disease and fibrosis. 4. Mild pulmonary emphysema. 5. No lung consolidation. 6. A few small pulmonary nodules. Labs are overall reassuring. Troponin on arrival was 0. A 2 hour troponin is pending. Hemoglobin was normal at 12.9 and white blood cell count was 6. His D-dimer was normal for age at 0.52 metabolic panel was normal, LFTs unremarkable and CRP less than 0.5. I spoke with the tumbler drier operator on-call at [facility]. He felt that it was reasonable to send the patient home, have him hold his metoprolol and call his tumbler drier operator tomorrow. Patient is comfortable with this. I am awaiting the repeat troponin and if that is normal, will discharge home with Cardiology follow-up. Discussed that if he is having worsening symptoms, has a syncopal episode, significant shortness of breath, chest pain or arm pain that is persistent etcetera return to the emergency department at any time. Repeat troponin was 0.01. Patient is discharged with above recommendations. Vital Signs Vital signs: Initial Vital Signs Temperature 97.9 F 07/28/23 15:31 Temperature Source Temporal Artery Scan 07/28/23 15:31 Pulse Rate 73 07/28/23 15:31 Respiratory Rate 16 07/28/23 15:31 Blood Pressure 165/80 H 07/28/23 15:31 Blood Pressure Mean 108 H 07/28/23 15:31 Blood Pressure Position Sitting 07/28/23 15:31 Pulse Oximetry 98 07/28/23 15:31 Oxygen Delivery Method Room Air 07/28/23 15:31 Vital Signs Temperature 97.9 F 07/28/23 15:31 Pulse Rate 73 07/28/23 15:31 Respiratory Rate 16 07/28/23 15:31 Blood Pressure 165/80 H 07/28/23 15:31 Pulse Oximetry 98 07/28/23 15:31 Oxygen Delivery Method Room Air 07/28/23 15:31 Temperature 97.9 F 07/28/23 15:31 Pulse Rate 71 07/28/23 18:02 Respiratory Rate 16 07/28/23 15:31 Blood Pressure 143/74 H 07/28/23 18:02 Pulse Oximetry 96 07/28/23 18:02 Oxygen Delivery Method Room Air 07/28/23 15:31 Medical Decision Making Lab Data Labs: Lab Results 07/28/23 07/28/23 Range/Units 15:48 18:15 WBC 6.10 (4.50-11.00) K/uL RBC 3.94 L (4.30-5.90) m/uL Hgb 12.9 L (13.5-17.5) gm/dL Hct 38.6 (37.0-53.0) % MCV 98 (80-100) fL MCH 33 (26-34) pg MCHC 33 (32-36) gm/dL RDW Coeff of Dora 13.0 (11.5-15.5) % Plt Count 191 (140-440) K/uL Neut % (Auto) 60.6 (42.0-72.0) % Lymph % (Auto) 26.7 (20-44) % Eddy % (Auto) 7.5 (0.0-11.0) % Eos % (Auto) 4.3 (0.0-7.0) % Baso % (Auto) 0.7 (0.0-3.0) % Neut # (Auto) 3.70 (1.7-7.0) K/uL Lymph # (Auto) 1.63 (0.90-2.90) K/uL Eddy # (Auto) 0.50 (0.00-0.90) K/UL Eos # (Auto) 0.26 (0.00-0.50) K/uL Baso # (Auto) 0.04 (0.00-0.30) K/uL Abs Immat Gran (auto) 0.01 (0.00-0.30) K/uL Imm/Tot Granulo (auto) 0.2 % INR 1.74 H (0.91-1.10) D-Dimer Quant (PE/DVT) 0.52 H (0.00-0.50) ug/ml Sodium 137 (135-149) mmol/L Potassium 4.3 (3.6-5.1) mmol/L Chloride 103 (96-114) mmol/L Carbon Dioxide 25 (20-32) mmol/L Anion Gap 9 (7-15) mEq/L BUN 23 (7-30) mg/dL Creatinine 1.3 (0.5-1.5) mg/dL Estimated GFR 56 ml/min Glucose 104 (60-115) mg/dL Lactate 1.4 (0.5-1.9) mmol/L Calcium 8.8 (8.4-10.6) mg/dL Total Bilirubin 0.4 (0.1-1.5) mg/dL Direct Bilirubin 0.0 (0.0-0.5) mg/dL AST 28 (12-35) U/L ALT 16 (4-50) U/L Alkaline Phosphatase 68 (40-150) U/L C-Reactive Protein < 0.5 L (0.5-1.0) mg/dL NT-Pro-B Natriuret Pep 424 pg/mL Total Protein 6.6 (6.0-8.3) g/dL Albumin 3.8 (3.3-5.0) g/dL POC Troponin I 0.00 L 0.01 (0.01-0.04) ng/ml Discharge Plan Discharge Clinical Impression: Near syncope Patient Disposition: Home, Self-Care Condition: Improved Instructions: Near Syncope (ED) Additional Instructions: Hold your metoprolol for now. Please call your cardiology clinic tomorrow for further instructions. If at any point you have severe symptoms, fainting, significant chest or arm pain, shortness of breath or other worsening, return to the emergency department. Your INR today is 1.74, slightly subtherapeutic. Please talk to your prescribing doctor for adjustments to your Coumadin if indicated. Prescriptions: No Action acetaminophen [8 Hour Pain Reliever] 650 mg tablet extended release 1,300 mg PO BID atorvastatin 20 mg tablet 20 mg PO HS Patient Comments: TAKE 1 TABLET BY MOUTH AT BEDTIME epinephrine [Auvi-Q] 0.3 mg/0.3 mL auto-injector 0.3 ml IM Q5-15M PRN famotidine 20 mg tablet 20 mg PO BID pantoprazole 40 mg tablet,delayed release (DR/EC) 40 mg PO DAILY Patient Comments: TAKE 1 TABLET BY MOUTH ONCE DAILY tamsulosin 0.4 mg capsule 0.8 mg PO HS Patient Comments: TAKE 2 CAPSULES BY MOUTH EVERY EVENING warfarin 5 mg tablet 5 - 7.5 mg PO DAILY Rx Instructions: 7.5 mg Mon-Wed-Fri 5 mg other days acetaminophen 500 mg Tablet 500 - 1,000 mg PO Q6H PRN (Reason: pain) Qty: 100 0RF Follow Up/Referrals: Provider,Not a Local [Referring] - Stand Alone Forms: Tripping Info Instructions
[2023-07-28 16:44] LABS: Albumin* 3.8 g/dL (3.3-5.0)
[2023-07-28 16:45] LABS: Chloride* 103 mmol/L (96-114); Potassium* 4.3 mmol/L (3.6-5.1); Sodium* 137 mmol/L (135-149)
[2023-07-28 16:47] LABS: Aspartate Amino Transferase* 28 U/L (12-35); Bilirubin Total* 0.4 mg/dL (0.1-1.5); Total Protein* 6.6 g/dL (6.0-8.3)
[2023-07-28 16:48] LABS: Alanine Aminotransferase* 16 U/L (4-50); Alkaline Phosphatase* 68 U/L (40-150); Creatinine* 1.3 mg/dL (0.5-1.5); Estimated Glomerular Filt Rate 56 ml/min; INR 1.74 (0.91-1.10); Prothrombin Time 21.2 Seconds
[2023-07-28 16:49] LABS: Anion Gap 9 mEq/L (7-15); Blood Urea Nitrogen* 23 mg/dL (7-30); Calcium* 8.8 mg/dL (8.4-10.6); Carbon Dioxide* 25 mmol/L (20-32); Glucose* 104 mg/dL (60-115)
--- OUTSIDE RECORDS SUMMARY | 2023-07-28 16:49 | XMS_ITS | Continuity of Care Document ---
Author Name Unknown Organization [facility] Address [address] [address] [place] [address] Phone Care Team Providers Care Group Leader [employer] Name Role Phone Unavailable Unavailable Unavailable Advance Directives Directive Yes / No Effective Date File Name No Information Encounters Encounter Description Practice Location Reason(s) For Visit Diagnoses Date Provider Providers Copied on Encounter [facility], [address] [address], [place], [place], [id number], [place] tel:[phone] [facility] No Information 3 No Information Referring Provider: Listed Not. Family History Family Member Type Diagnosis Age At Onset No Information Payers Payer name Insurance type Covered constitution party ID Authoriza tiashley(s) [employer] [id number] Social History Type Description Quantity Date Captured Comments Sex Male Smoking Status No Information Chief Complaint And Reason For Visit No Information Reason For Referral Reason For Referral No Information History Of Present Illness Encounter Date Complaint History Of Prese nt Illness No Information Functional Status Date Functional Assessmen t No Information Instructions Date Instruction Additional Infor mation No Information Assessments Type Assessment Date No Information Patient Care Teams Name Effective Dates (start - stop) Status Members No Information
[2023-07-28 16:50] LABS: D Dimer Quantitative* 0.52 ug/ml (0.00-0.50)
[2023-07-28 16:53] LABS: C Reactive Protein* < 0.5 mg/dL (0.5-1.0)
[2023-07-28 16:58] LABS: NT Pro B Type NatriureticPept* 424 pg/mL
[2023-07-28 18:28] LABS: Troponin, Point-of-Care* 0.01 ng/ml (0.01-0.04)
== END 2023-07-28 18:53 | disposition home or self-care (01) ==
PROVIDERS: Emergency Provider Emergency Medicine; PCP Family Medicine
DX: R55 Syncope and collapse (principal); R79.89 Other specified abnormal findings of blood chemistry
CPT/HCPCS: 36415; 71275; 80048; 80076; 83605; 83880; 84484; 85025; 85379; 85610; 86140; 93005; 94761; 99284; Q9967

== ENCOUNTER 2023-11-19 13:45 | Outpatient (RCR) | payer MEDICARE, SELFPAY | END 2023-12-24 10:11 | disposition home or self-care (01) | PROVIDERS: PCP Family Medicine; Visit Provider Family Medicine | DX: M54.12 Radiculopathy, cervical region (principal); Z51.89 Encounter for other specified aftercare | CPT/HCPCS: 97012; 97140; 97162 ==

== ENCOUNTER 2024-02-18 09:15 | Outpatient (RCR) | payer MEDICARE, SELFPAY | END 2024-02-19 07:37 | disposition home or self-care (01) | PROVIDERS: PCP Family Medicine; Visit Provider Orthopaedic Surgery | DX: M13.842 Other specified arthritis, left hand (principal); M13.841 Other specified arthritis, right hand; G56.03 Carpal tunnel syndrome, bilateral upper limbs; G56.21 Lesion of ulnar nerve, right upper limb; Z98.890 Other specified postprocedural states; Z51.89 Encounter for other specified aftercare | CPT/HCPCS: 97035; 97110; 97140; 97165; 97535; X5282 ==

== ENCOUNTER 2024-08-14 08:40 | Outpatient (CLI) | payer MEDICARE, SELFPAY ==
--- OUTSIDE RECORDS SUMMARY | 2024-08-14 08:43 | XMS_ITS | Clinical Summary ---
Author Organization [employer] [facility] Address [place], [place] [address] Care Team Providers Care Land Surveying Survey Worker Name Role Phone Maxi Ware MD Unavailable Ervin Castañeda MD Primary Care Provider + [facility] Unavailable [phone] Allergies Active Allergy Reactions Criticality Noted Date Comments Venom-Honey Bee Anaphylaxis 10/27/2010 Medications Medication Sig Dispensed Refills Start Date End Date Status acetaminophen SR (Tylenol Arthritis Pain) 650 mg Extended-Release tabletIndications:Le ft knee pain, unspecified chronicity Take 1,300 mg by mouth every 12 hours if needed (Pain). Max acetaminophen dose: 4000mg in 24 hrs. 0 1 Active EPINEPHrine (EpiPen) 0.3 mg/0.3 mL auto-injectorIndicat ions:Bee sting allergy Inject 0.3 mg intramuscularly one time if needed for allergic reaction. 2 Each 3 2 Active acetaminophen/diphen hydramine (TYLENOL PM ORAL) Take 1-2 Tablets by mouth at bedtime if needed. Active melatonin 3 mg tablet Take 3 mg by mouth at bedtime. Active multivitamins-minera ls-lutein (Multivitamin 50 Plus) tab tablet Take 1 Tablet by mouth once daily. Active furosemide (LASIX) 40 mg tabletIndications:SO B (shortness of breath) TAKE 1/2 TABLET(20MG) BY MOUTH ONCE DAILY IF NEEDED(WEIGHT>225LB OR INCREASED SHORTNESS OF BREATH/SWELLING. Further refills pending follow up appointment with Dr. Peacock 45 Tablet 3 4 Active atorvastatin (LIPITOR) 20 mg tabletIndications:Hy perlipidemia, unspecified hyperlipidemia type Take 1 Tablet (20 mg) by mouth at bedtime. 90 Tablet 3 4 Active pantoprazole (PROTONIX) 40 mg delayed-release tabletIndications:Ga stroesophageal reflux disease without esophagitis Take 1 Tablet (40 mg) by mouth once daily. 90 Tablet 3 4 Active tamsulosin (FLOMAX) 0.4 mg capsuleIndications:D ifficulty voiding TAKE 2 CAPSULES BY MOUTH EVERY EVENING 180 Capsule 3 4 Active metoprolol succinate (Toprol XL) 25 mg Sustained-Release tabletIndications:Ch ronic systolic congestive heart failure (HC) Take 1 Tablet (25 mg) by mouth once daily in the evening. 90 Tablet 3 4 Active losartan (COZAAR) 25 mg tabletIndications:Ch ronic systolic congestive heart failure (HC) Take 0.5 Tablets (12.5 mg) by mouth once daily. 45 Tablet 3 4 Active warfarin (COUMADIN) 5 mg tabletIndications:Ch ronic atrial fibrillation (HC),Primary hypercoagulable state (HC),Anticoagulation monitoring, INR range 2-3 Take by mouth 08/09: Hold; 08/10: Hold; 08/11: Hold; 08/12: Hold; 08/13: Hold; Otherwise 5 mg every Mon, Wed, Sat; 7.5 mg all other days in the evening OR as directed 4 Active polyethylene glycol-electrolyte (GOLYTELY) 236-22.74-6.74 -5.86 gram suspensionIndication s:Encounter for screening colonoscopy Drink 2 liters the day before the procedure and 2 liters 6 hours prior to procedure. 4000 mL 4 Active famotidine (PEPCID) 20 mg tabletIndications:Hi story of gastroesophageal reflux (GERD) Take 1 Tablet (20 mg) by mouth once daily. 4 Active famotidine (PEPCID) 20 mg tabletIndications:Hi story of gastroesophageal reflux (GERD) Take 1 Tablet (20 mg) by mouth two times daily. 90 Tablet 3 4 024 Discontin ued(*Medi cation adjustmen t) warfarin (COUMADIN) 5 mg tabletIndications:Ch ronic atrial fibrillation (HC),Primary hypercoagulable state (HC),Anticoagulation monitoring, INR range 2-3 Take by mouth 5 mg (5 mg x 1) every Mon, Wed, Fri; 7.5 mg (5 mg x 1.5) all other days in the evening OR as directed 4 024 Discontin ued(Reord er (E-cancel not sent)) polyethylene glycol-electrolyte (GOLYTELY) 236-22.74-6.74 -5.86 gram suspensionIndication s:Encounter for screening colonoscopy Drink 2 liters the day before the procedure and 2 liters 6 hours prior to procedure. 4000 mL 4 024 Discontin ued(Reord er (E-cancel not sent)) Active Problems Patient Care Coordination No te Formatting of this note migh t be different from the original. HF/Structural/Prevention Research Eligibility Review Date: 11/11/19 Upcoming Visit Location: [facility] Age: 78 y.o. Research Purpose Insurance Type: Medicare/Medicaid Comments: This patient was indicated to be a potential candidate and pre-screened for the following studies: Acurate CLAUDIA: no severe Early TAVR: no severe Problem Noted Date Diagnosed Date Complete heart block 02/12/2024 History of pulmonary embolus (PE) 05/02/2023 S/P IVC filter 05/02/2023 Severe aortic stenosis 04/25/2023 Chronic systolic congestive heart failure 2022 Body mass index (BMI) 40.0-44.9, adult 2 Precordial pain 03/21/2019 Sinus node dysfunction 02/13/2018 Pacemaker 02/13/2018 Atypical atrial flutter 07/23/2017 Hx. of Persistent atrial fibrillation 08/04/2015 Overview (08/04/2015): s/p ablation 03/2013 Anticoagulation monitoring, INR range 2-3 2013 Difficulty voiding 05/31/2014 HONORIO 03/29/2013 AHI-12 04/01/2013 Hyperlipidemia 03/04/2013 Chronic atrial fibrillation 01/16/2013 Overview (03/06/2013): -likely PAF over the past several years -[facility] ER on 01/12/13 persistent episode initiated by gastroenteritis/dehydration -02/18/2013: successful JEANNE guided cardioversion -03/05/2013 s/p transesophogeal echocardiography direct current cardioversion Esophageal reflux 01/30/2011 Bee sting-induced anaphylaxis 03/18/2009 SVT (supraventricular tachycardia) 03/04/2009 Paralytic ileus 08/17/2005 VENTRAL HERNIA 08/15/2005 Overview (08/15/2005): S/P surgical repair 08/14/05 LUPUS ANTICOAGULANT POSITIVE 08/15/2005 Overview (08/15/2005): History of perioperative bilateral pulmonary emboli in December 2002 S/P IVC filter placement December 2002 Personal history of colonic polyps 08/15/2005 Overview (03/19/2022): Colonoscopy 08/2013 polyps repeat in 5 years Other abnormal glucose 08/15/2005 Resolved Problems Problem Noted Date Diagnosed Date Resolved Date Venous stasis ulcer 10/22/2020 06/05/20 22 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 Juan Daniel Phoenix HYPERHOMOCYSTEINEMIA 08/15/2005 022 Overview (08/15/2005): Level of 13.8 on 06/22/2004 Maintained on Foltx Encounters Date Type Department Care Team Description 08/12/2024 Telephone [facility] [address] [place] [address] Ervin Castañeda MD Anticoagulation (lab orders) 08/05/2024 Anticoagulation (warfarin) [facility] [address] [place] [address] 1, [facility] Anticoagulation (Office Visit ) 08/05/2024 Orders Only [facility] [address] [place] [address] Carlos Peacock MD <No scans attached> 08/04/2024 10:00 AM CDT Office Visit [facility] [address] [place] [address] Ervin Castañeda MD Preoperative Exam (DOS 08/14/[address] [facility] [address] Gamble); Derm Problem (New spot R arm) 08/04/2024 Travel 07/29/2024 1:40 PM CDT Office Visit [facility] [address] [place] [address] David Ramos MD Back Pain (Lower back pain, started about 4 weeks ago, on and off); Dizziness (Lightheaded, off balance, today has been ongoing); Urinary Problem (Concerns about cloudy dark urine last night, nothing today) 07/29/2024 Travel 07/21/2024 Telephone [facility] [address] [place] [address] Ervin Castañeda MD Anticoagulation (Procedure Colonoscopy 08/14/24 ) 07/21/2024 Anticoagulation (warfarin) [facility] [address] [place] [address] 1, [facility] Anticoagulation 07/20/2024 1:30 PM CDT Orders Only [facility] [address] [place] [address] Lab, [facility] 07/20/2024 Travel 07/15/2024 Telephone [facility] [address] [place] [address] Ervin Castañeda MD Anticoagulation ([facility]/) 06/05/2024 11:00 AM CDT Orders Only [facility] [address] [place] [address] Lab[facility] 06/05/2024 Travel 05/28/2024 Telephone [facility] [address] [place] [address] Carlos Peacock MD Cardiology Appointment; Error-please disregard 05/26/2024 Telephone [facility] [address] [place] [address] Carlos Peacock MD Lab 05/26/2024 Telephone [facility] [address] [place] [address] Faisal Gamble MD Pre Procedure 05/26/2024 Travel 05/16/2024 Telephone [facility] [address] [place] [address] Ervin Castañeda MD Anticoagulation 05/16/2024 Anticoagulation (warfarin) [facility] [address] [place] [address] 1, [facility] Anticoagulation 05/15/2024 2:15 PM CDT Orders Only [facility] [address] [place] [address] Lab[facility] 05/15/2024 Travel from Last 3 Months Immunizations Name Administration Dates Next Due AMB Influenza, IIV4 PF (=>6 mos Flulaval,Fluzone Fluarix)(Flu Clinic Only) 07/23/2013 Amb Influenza, Inact (High-d ose) (Flu Clinic Only) 07/22/2014 Amb Influenza, Inactivated A IIV4 (Age 65+ Years) Preserv Free 07/11/2020 COVID-19 VACCINE SPIKEVAX (M ODERNA 50MCG/0.5ML) 12YO+ PFS 07/29/2024 COVID-19 vaccine (Pfizer-Bio NTech 30mcg/0.3mL) 12YO+ BIVALENT PF, MDV 04/22/2023,07/26/2022 COVID-19 vaccine (Pfizer-Bio NTech 30mcg/0.3mL) 12YO+ MARY ALICE-SUCROSE PF, MDV 01/29/2022 COVID-19 vaccine (Pfizer-Bio NTech 30mcg/0.3mL) PF, MDV 07/17/2021,12/01/2020,11/10/2020 Hepatitis A (Adult) 06/06/2016,01/11/2012 Influenza, High-dose Inactivated 07/11/2016,07/14 Influenza, High-dose Quadriv alent Inactivated 07/17/2021 Influenza, IIV3 (Age >=3 years) 07/29/20 12,08/16/2011,09/13/2010,07/12,08/05/2008,07/23/2007,08/07/2006 ,08/29/2005 Influenza, Inactivated AIIV4 (Age 65+ Years) Preserv Free 06/25/2023,07/26/2022 Influenza, Inactivated IIV3 (Age 65+ Years) Preserv Free 07/29/2024,08/18/2019,07/29/2018,06/19 Pneumococcal Poly,23-Valent (Pneumovax) 01/11/2012 Pneumococcal conj 13-Valent (Prevnar 13) 06/06/2016 RSV, Recombinant ADJ Reconst ituted (Arexvy 120MCG/0.5mL) 09/10/2023 Tdap 02/07/2023,01/11/2012 Zoster (Shingrix-RZV, recombinant) 07/10/2023, Zoster (Zostavax-ZVL, live) 01/11/2014 Family History Medical History Relation Name Comments Heart Disease Brother 2 [place] Diabetes Brother 3 Diabetes Brother 4 Diabetes Brother 5 Other Mother dvt Relation Name Status Comments Brother 1 (Age 56) [place] Brother 2 Brother 3 Brother 4 Brother 5 Mother Social History Tobacco Use Types Packs/Day Years Used Date Smoking Tobacco: Former Cigarettes Q uit: 1968 Smokeless Tobacco: Never Tobacco Cessation:Counseling Given: No Alcohol Use Standard Drinks/Week Comments Yes 3 (1 standard drink = 0.6 oz pur e alcohol) 1-3 drinks/week PHQ-2 Answer Date Recorded PHQ-2 TOTAL SCORE 0 05/06/2024 Social Connections Answer Date Recorded Do you often feel lonely or isolated from those around you? 0 05/06/2024 Financial Resource Strain Answer Date R ecorded Difficulty of Paying Living Expenses 3 05/06/2024 Difficulty of Paying Living Expenses Not on file 05/06/2024 Food Insecurity Answer Date Recorded Do you worry your food will run out before you are able to buy more? 1 05/06/2024 Transportation Needs Answer Date Record ed Does lack of transportation keep you from medica l appointments? 1 05/06/2024 Does lack of transportation keep you from work, meetings or getting things that you need? 1 05/06/2024 Housing Stability Answer Date Recorded What is your housing situation today? 1 05/06/2024 Sex and Gender Information Value Date Recorded Sex Assigned at Not on file Gender Identity Not on file Sexual Orientation Not on file Obstetrics History Last Filed Vital Signs Vital Sign Reading Time Taken Comments Blood Pressure 112/74 08/04/2024 9:59 AM CDT Pulse 78 08/04/2024 9:59 AM CDT Temperature 36.3 ??C (97.4 ??F) 08/04/2024 9:59 AM CD T Respiratory Rate 18 02/13/2024 7:53 AM CDT Oxygen Saturation 100% 08/04/2024 9:59 AM CDT Inhaled Oxygen Concentration - - Weight 108.5 kg (239 lb 4.8 oz) 08/04/2024 9:59 AM CDT Height 182.9 cm (6') 08/04/2024 9:59 AM CDT Body Mass Index 32.45 08/04/2024 9:59 AM CDT Plan of Treatment Upcoming Encounters Date Type Department Care Team (Late st Contact Info) Description 08/14/2024 8:45 AM CDT Office Visit [facility] [address] [place] [address] Faisal Gamble MD [address] [place] [address] Arrived 08/21/2024 9:45 AM BILL OF LADING CLERK Orders Only [facility] [address] [place] [address] [place] 08/25/2024 11:30 AM BILL OF LADING CLERK Office Visit [address] [place] [address] Carlos Peacock MD [address] [facility] [address] [place] [address] 08/27/2024 Cardiac Device Check [facility] [phone] Health Maintenance Due Date Last Done Comments Medicare Wellness for age 65+ 05/07/2025, 04/11/2023, 03/21/2022, Additional history exists Depression screening for age 12+ 05/08/2025 05/08/2024, 05/07/2024, 05/06/2024, Additional history exists BMI (ht and wt on same day) for age 18+ 08/04/2025 08/04/2024, 05/12/2024, 05/06/2024, Additional history exists Tetanus booster 02/07/2033 02/07/2023, 01/11/2012 Pneumococcal series for age 65+ Completed 6, 01/11/2012 Tdap Completed 02/07/2023, 01/11/2012 Zoster (shingles) series for age 50+ Completed 07/10/2023, 02/07/2023, 01/11/2014 RSV vaccine for adults or Completed 09/10/2023 COVID-19 vaccine series Completed 07/29/20 24, 08/23/2023, 04/22/2023, Additional history exists Influenza for age 65+ Completed 07/29/2024 , 06/25/2023, 07/26/2022, Additional history exists Medical Devices Implanted Type Area Log Sawyer Device Identifier Shelf Expiration Date Model / Serial / Lot [id number] - [id number] Implanted:Qty: 1 on 08/14/2005 at [facility] Grafts Abdomen DAVOL [id number] / / [id number] Procedures Procedure Name Priority Date/Time Associated Diagnosis Comments PROTIME-INR Routine 08/04/2024 11:00 AM CDT Chronic atrial fibrillation (HC) LUPUS ANTICOAGULANT POSITIVE Anticoagulation monitoring, INR range 2-3 URINE CULTURE Routine 07/29/2024 2:16 PM CDT Dysuria UA W/ SEDIMENT EXAM REFLEXED PER CRITERIA Routine 07/29/2024 2:16 PM CDT Dysuria URINALYSIS MACROSCOPIC - [facility] ONLY POC DIP ([facility]) Routine 07/29/2024 2:12 PM CDT Dysuria BASIC METABOLIC PANEL Routine 07/20/2024 1:29 PM CDT Chronic systolic congestive heart failure (HC) PRO-BNP Routine 07/20/2024 1:29 PM CDT Chronic systolic congestive heart failure (HC) PROTIME-INR Routine 07/20/2024 1:29 PM CDT Chronic atrial fibrillation (HC) LUPUS ANTICOAGULANT POSITIVE Anticoagulation monitoring, INR range 2-3 BASIC METABOLIC PANEL Routine 06/05/2024 11:02 AM CDT Chronic systolic congestive heart failure (HC) PROTIME-INR STAT 05/15/2024 2:13 PM CDT Chronic atrial fibrillation (HC) LUPUS ANTICOAGULANT POSITIVE Anticoagulation monitoring, INR range 2-3 from Last 3 Months Results * (ABNORMAL) PROTIME-INR (08/04/2024 11:00 AM CDT) Only the most recent of3 resultswithin the time period is included. INR 2.6(H) [facility] Comment: Reference Range ? 0.9-1.1 Moderate-intensity Warfarin Therapy 2.0-3.0 Higher-intensity Warfarin Therapy ?? 3.0-4.0 PT 26.6(H) 9.0 - 11.5 sec [facility] Comment: For additional information, please refer to http://education.Progressive Care.Secure64/faq/CNC569 (This link is being provided for informational/ educational purposes only.) Blood BLOOD SPECIMEN / Unknown 08/04/2024 11:00 AM CDT 08/04/2024 11:01 AM CDT Ervin Castañeda MD HEMATOLOGY [facility] [address] [place] [address], [facility] [address] [place] [phone] * URINE CULTURE (07/29/2024 2:16 PM CDT) CULTURE, URINE, ROUTINE SEE NOTE [facility] Comment: ??CULTURE, URINE, ROUTINE ?Micro Number: ?[id number] ??Test Status: ? Final ??Specimen Source: ?? Urine, clean catch ??Specimen Quality: ??Adequate ??Result: ?No Growth Urine URINE SPECIMEN / Unknown 07/29/2024 2:16 PM CDT 07/29/2024 2:18 PM CDT David Ramos MD MICROBIOLOGY [facility] [address] [address], [facility] [address] * UA W/ SEDIMENT EXAM REFLEXED PER CRITERIA (07/29/2024 2:16 PM CDT) COLOR YELLOW YELLOW [facility] APPEARANCE CLEAR CLEAR [facility] SPECIFIC GRAVITY 1.009 1.001 - 1.035 [facility] PH 6.0 5.0 - 8.0 [facility] GLUCOSE NEGATIVE NEGATIVE [facility] BILIRUBIN NEGATIVE NEGATIVE [facility] KETONES NEGATIVE NEGATIVE [facility] OCCULT BLOOD NEGATIVE NEGATIVE [facility] PROTEIN NEGATIVE NEGATIVE [facility] NITRITE NEGATIVE NEGATIVE [facility] LEUKOCYTE ESTERASE NEGATIVE NEGATIVE [facility] Urine URINE SPECIMEN / Unknown 07/29/2024 2:16 PM CDT 07/29/2024 2:18 PM CDT David Ramos MD URINE [facility] [address] [place] [address], [place] [phone] [facility] [address] [place] [address] * POCT Urinalysis Dipstick Only (07/29/2024 2:12 PM CDT) Pathologist [facility] PH 6.0 5.0 - 8.0 [facility] SPECIFIC GRAVITY 1.010 1.001 - 1.035 [facility] GLUCOSE NEGATIVE NEGATIVE [facility] BILIRUBIN NEGATIVE NEGATIVE [facility] KETONES NEGATIVE NEGATIVE [facility] OCCULT BLOOD NEGATIVE NEGATIVE [facility] PROTEIN NEGATIVE NEGATIVE [facility] NITRITE NEGATIVE NEGATIVE [facility] LEUKOCYTE ESTERASE NEGATIVE NEGATIVE [facility] Urine URINE SPECIMEN / Unknown 07/29/2024 2:12 PM CDT 07/29/2024 2:13 PM CDT David Ramos MD URINE Performing Organization Address City/[facility]/ZIP Co de Phone Number [facility] [address] [place] [address], [place] [phone] [facility] [address] [place] [address] * PRO-BNP (07/20/2024 1:29 PM CDT) NT PROBNP 257 <450 pg/mL [facility] Blood BLOOD SPECIMEN / Unknown 07/20/2024 1:29 PM CDT 07/20/2024 1:29 PM CDT Carlos Peacock MD SEND OUTS [facility] [address] [facility] [place] [address], [facility] [address] [address] [address] * (ABNORMAL) BASIC METABOLIC PANEL (07/20/2024 1:29 PM CDT) Only the most recent of2 resultswithin the time period is included. [facility] GLUCOSE 76 65 - 99 mg/dL [facility] Comment: ? Fasting reference interval UREA NITROGEN (BUN) 20 7 - 25 mg/dL [facility] CREATININE 1.20 0.70 - 1.22 mg/dL [facility] EGFR 61 > OR = 60 mL/min/1. 73m2 [facility] BUN/CREATININE RATIO SEE NOTE: 6 - 22 (calc) [facility] Comment: ?? Not Reported: BUN and Creatinine are within ?? reference range. ? SODIUM 140 135 - 146 mmol/L [facility] POTASSIUM 4.4 3.5 - 5.3 mmol/L [facility] CHLORIDE 103 98 - 110 mmol/L [facility] CARBON DIOXIDE 31 20 - 32 mmol/L [facility] ELECTROLYTE BALANCE 6(L) 7 - 17 mmol/L (calc) [facility] CALCIUM 9.1 8.6 - 10.3 mg/dL [facility] Blood BLOOD SPECIMEN / Unknown 07/20/2024 1:29 PM CDT 07/20/2024 1:29 PM CDT Carlos Peacock MD CHEMISTRY [facility] [address] [place] [address], [facility] [address] [place] [address] from Last 3 Months Advance Directives Documents on File Type Date Recorded 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 Healthcare Directive 06/11/2023 023 * Full Code (Latest Code Status on File) Date Activated Date Inactivated Comments 02/12/2024 11:55 AM 02/13/2024 1:30 PM Question Answer Comments Code Status Discussion: Other (specify in commen ts): * Full Code Date Activated Date Inactivated Comments 06/18/2023 1:58 PM 06/19/2023 1:07 PM Question Answer Comments Code Status Discussion: Reviewed Preferences * Full Code Date Activated Date Inactivated Comments 05/02/2023 11:22 AM 05/02/2023 4:57 PM Question Answer Comments Code Status Discussion: Unable to Assess Preferences, Provider to review later * Full Code Date Activated Date Inactivated Comments 04/01/2023 11:09 AM 04/01/2023 6:13 PM Question Answer Comments Code Status Discussion: Unable to Assess Preferences, Provider to review later * Full Code Date Activated Date Inactivated Comments 07/22/2019 3:15 PM 07/22/2019 9:35 PM Care Teams Land Surveying Survey Worker Relationship Specialty Start Date End Date Votel, Ervin Gordon MD [address] [place] [address] PCP - General Family Practice 11/24/15 Maxi Ware MD Internal Medicine Sleep Medicine 02/23/13 [facility], [address] [address] Cardiology - CHF 04/03/23
--- OUTSIDE RECORDS SUMMARY | 2024-08-14 08:43 | XMS_ITS | Clinical Summary ---
Author Organization [facility] Address [address] [place] [address]. [place] [address] Care Team Providers Care Toll Line Mechanic Name Role Phone Ervin Castañeda Primary Care Provider [phone] Allergies Active Allergy Reactions Criticality Noted Date Comments Bee Venom Anaphylaxis High 10/27/2010 Medications atorvastatin (LIPITOR) 20 MG tablet Take 1 tablet by mouth at bedtime 3 Active famotidine (PEPCID) 20 MG tablet Take 20 mg by mouth 4 Active furosemide (LASIX) 40 MG tablet Take 20 mg by mouth 3 Active LUTEIN PO Take 1 tablet by mouth daily Active melatonin 3 MG tablet Take 3 mg by mouth at bedtime Active pantoprazole (PROTONIX) 40 MG EC tablet Take 1 tablet by mouth daily 3 Active tamsulosin (FLOMAX) 0.4 MG capsule Take 2 capsules by mouth every evening 3 Active warfarin ANTICOAGULANT (COUMADIN) 5 MG tablet Take by mouth 12/17: 5 mg; 12/20: 5 mg; 12/24: 5 mg; 12/28: Hold; 12/29: Hold; 12/30: Hold; 12/31: Hold; 01/01: Hold; Otherwise 5 mg every Sat, Sat, Sat; 7.5 mg all other days in the evening OR as directed 4 Active acetaminophen (TYLENOL) 500 MG tablet Take 500-1,000 mg by mouth every 6 hours as needed for mild pain Active ondansetron (ZOFRAN ODT) 4 MG ODT tabIndications: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 Take 1 tablet (4 mg) by mouth every 8 hours as needed for nausea 5 tablet 1 4 Active Active Problems No known active problems Social History Tobacco Use Types Packs/Day Years Used Date Smoking Tobacco: Former Cigarettes Smokeless Tobacco: Never Tobacco Cessation:Counseling Given: Not Answered Adolescent Education Answer Date Record ed Getting School Help Needed Not on file 01/05 Sex and Gender Information Value Date Recorded Sex Assigned at Not on file 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 Gender Identity Not on file Sexual Orientation Not on file Last Filed Vital Signs Vital Sign Reading Time Taken Comments Blood Pressure 132/73 01/06/2024 3:00 PM CDT Pulse 69 01/06/2024 3:00 PM CDT Temperature 36.2 ??C (97.1 ??F) 01/06/2024 2:43 PM CD T Respiratory Rate 16 01/06/2024 3:00 PM CDT Oxygen Saturation 98% 01/06/2024 3:00 PM CDT Inhaled Oxygen Concentration - - Weight 105.5 kg (232 lb 8 oz) 01/06/2024 11:03 A M CDT Height 182.9 cm (6') 12/23/2023 11:00 AM CDT Body Mass Index 31.53 12/23/2023 11:00 AM CDT Plan of Treatment Health Maintenance Due Date Last Done Comments ADVANCE CARE PLANNING 1942 ANNUAL REVIEW OF HM ORDERS 1942 LIPID 1942 FALL RISK ASSESSMENT 2007 RSV VACCINE (1 - 1-dose 75+ series) 2017 PHQ-2 (once per calendar year) 2023 MEDICARE ANNUAL WELLNESS VISIT 04/11/2024 04/11/2023, 03/21/2022, 10/20/2020 COVID-19 Vaccine ( season) 2024 08/23/2023, 04/22/2023, 07/26/2022, Additional history exists INFLUENZA VACCINE (#1) 2024 , 07/26/2022, 07/17/2021, Additional history exists DTAP/TDAP/TD IMMUNIZATION (3 - Td or Tdap) 02/07/2033 02/07/2023, 01/11/2012 Pneumococcal Vaccine: 65+ Years Completed 06/06/2016, 01/11/2012 ZOSTER IMMUNIZATION Completed 07/10/2023, 02/07/2023, 01/11/2014 HPV IMMUNIZATION Aged Out No longer e ligible based on patient's age to complete this topic MENINGITIS IMMUNIZATION Aged Out No l onger eligible based on patient's age to complete this topic RSV MONOCLONAL ANTIBODY Aged Out No l onger eligible based on patient's age to complete this topic Goals Goal Patient Goal Type Associated Problems Recent Progress Patient-Stated? Author [facility] Care Plan [facility] No Marni Claros Additional Health Concerns Active Problems Noted Date Diagnosed Date MyC ECC SURG ENROLL 12/30/2023 Insurance BCBS MEDICARE ADVANTAGE BCBS MEDICARE ADVANTAGE Care Teams Toll Line Mechanic Relationship Specialty Start Date End Date Votel, Ervin [place] [address] PCP - General Family Medicine 12/02/23
--- OUTSIDE RECORDS SUMMARY | 2024-08-14 08:43 | XMS_ITS | Referral Summary ---
Author Organization [facility] Address [address] [place] [address]. [place] [address] Care Team Providers Care Highway Worker Name Role Phone Ervin Castañeda Primary Care Provider [phone] Allergies Active Allergy Reactions Criticality Noted Date [...] as needed for nausea 5 tablet 1 Active Active Problems No known active problems Social History Tobacco Use Types Packs/Day Years Used Date Smoking Tobacco: Former Cigarettes Smokeless Tobacco: Never Tobacco Cessation:Counseling Given: Not Answered Adolescent Education Answer Date Record ed Getting School Help Needed Not on file 01/05 Sex and Gender Information Value Date Recorded Sex Assigned at Not on file 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 Author MYC ECC SURG ENROLL Care Plan [facility]C ECC SURG E[facility] No Marni Claros Additional Health Concerns Active Problems Noted Date Diagnosed Date MyC ECC SURG ENROLL 12/30/2023 Insurance [facility] MEDICARE ADVANTAGE [facility] MEDICARE ADVANTAGE Care Teams Highway Worker Relationship Specialty Start Date End Date Votel, Ervin Cash [address] [place] [address] PCP - General Family Medicine 12/02/23
--- OUTSIDE RECORDS SUMMARY | 2024-08-14 08:43 | XMS_ITS | Data Portability ---
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 No lymphovascular or perineural invasion. Not available 04/15/2023 12:10:05 Plan of Treatment Reminders Order Date Submit Date Provider Last Modified By Organization Details Last Modified Time Details Appointments None recorded. Lab None recorded. Referral None recorded. Procedures None recorded. Surgeries biopsy of penis (SURG) 2022 023 [email or web address] Not available 3 10:04:[address], abdomen + pelvis, w/ contrast [address] [facility] , [address] [place], [address], 3 11:42:50 XR, chest, 2 view [address] [facility] , [address] [place], [address], 3 11:42:51 Medication Orders None recorded. Patient TargetsNo targets recorded. Patient InstructionsNo instructions recorded. Reason for Referral None Reported. Results Created Date Observation Date Name Description Value Unit Range Abnormal Flag Note LastModifiedBy Organization Detail LastModifiedTime 04/19/20 23 04/19/2023 XR, chest , 2 view EXAM: XR, CHEST, 2 VIEW LOCATI ON: [facility] [place] DATE: 04/19/20 INDICA TION: Malign ant neopla sm of penis, unspec ified COMPAR FRANCISCO: None. IMPRES GI: Reticu lar opacit ies are seen along the lower lungs which may sugges t pulmon satnam edema or subseg mental atelec tasis. Enlarg ed cardio medias tinal silhou ette. Left chest wall pacema ker device is seen with lead tips overly ing the right atrium and ventri lissette. Multil evel degene rative change s are seen in the spine. This report was electr onical ly interp reted by: Deb Oconnell MD on 2022 at 16:04 [facility] [address], [place], [address], 04/22/2023 10:02:48 04/19/2004/19/2023 CT, abdom en + pelvi s, w/ contr ast EXAM: CT, ABDOME N + PELVIS , W/ CONTRA ST LOCATI ON: [facility] [place] DATE: 04/19/20 INDICA TION: Malign ant neopla sm of penis, unspec ified COMPAR FRANCISCO: None. TECHNI QUE: CT scan of the abdome n and pelvis was perfor med follow ing inject ion of IV contra st. Multip lanar reform ats were obtain ed. Dose reduct ion techni ques were used. CONTRA ST: None. FINDIN GS: LOWER CHEST: Partia lly seen cardia c leads in the right atrium and ventri lissette. Mitral annula r calcif icatio ns are presen t. Subple ural reticu lation s are seen in the lungs sugges tive of fibros is. 2.9 cm cyst is noted within the left lower lobe. HEPATO BILIAR Y: No signif icant mass or bile duct dilata tion. No calcif ied gallst ones. PANCRE : No signif icant mass, duct dilata tion, or inflam matory change . SPLEEN : Normal size. ADRENA L GLANDS : No signif icant nodule s. KIDNEY S/BLAD MARYAM: Multip le subcen timete r hypoat tenuat ing lesion s along the inferi or pole of the right kidney are too small to charac terize and statis ticall y likely reflec t small cysts. No hydron ephros is is presen t. Multip le divert icula are seen along the urinar y bladde r. BOWEL: Divert iculos is of the colon. No acute inflam matory change . No obstru ction. Hernia mesh is noted along the anteri or abdomi nal wall. LYMPH NODES: No lympha denopa thy. VASCUL ATURE: Scatte red vascul ar calcif icatio ns are seen in the abdomi nal aorta and iliac branch es. IVC filter is noted within the inferi or vena cava. Multip le varico se vessel s are seen along the anteri or and pelvic edgar. PELVIC ORGANS : Dystro phic calcif icatio ns are seen in the prosta te gland. MUSCUL OSKELE BISHOP: Diffus e osteop enia is presen t. Multil evel degene rative change s are seen in the spine. IMPRES GI: 1. No eviden ce of pathol ogical lympha denopa thy seen in the abdome n and pelvis . Severa l subcen timete r retrop eriton eal lymph nodes are nonspe cific and may be reacti ve. Sugges t attent ion on follow -up exam. This report was electr onical ly interp reted by: Deb Oconnell MD on 2022 at 16:18 [facility] [address], [place], [address], 04/22/2023 21:16:03 Result Notes Documentation Provider Name and Address Organization Details Recorded Time Xr, Chest, 2 View : EXAM: XR, CHEST, 2 VIEW LOCATION: [facility] [place] DATE: 04/19/2023 INDICATION: Malignant neoplasm of penis, unspecified COMPARISON: None. IMPRESSION: Reticular opacities are seen along the lower lungs which may suggest pulmonary edema or subsegmental atelectasis. Enlarged cardiomediastinal silhouette. Left chest wall pacemaker device is seen with lead tips overlying the right atrium and ventricle. Multilevel degenerative changes are seen in the spine. This report was electronically interpreted by: Deb Oconnell MD on 04/19/2023 at 16:04 Fabricio uRbio MD [address] [facility],[address], [place], [address], [place] [facility] 04/22/2023 10:02:48 Ct, Abdomen + Pelvis, W/ Contrast : EXAM: CT, ABDOMEN + PELVIS, W/ CONTRAST LOCATION: [facility] DATE: 04/19/2023 INDICATION: Malignant neoplasm of penis, unspecified COMPARISON: None. TECHNIQUE: CT scan of the abdomen and pelvis was performed following injection of IV contrast. Multiplanar reformats were obtained. Dose reduction techniques were used. CONTRAST: None. FINDINGS: LOWER CHEST: Partially seen cardiac leads in the right atrium and ventricle. Mitral annular calcifications are present. Subpleural reticulations are seen in the lungs suggestive of fibrosis. 2.9 cm cyst is noted within the left lower lobe. HEPATOBILIARY: No significant mass or bile duct dilatation. No calcified gallstones. PANCREAS: No significant mass, duct dilatation, or inflammatory change. SPLEEN: Normal size. ADRENAL GLANDS: No significant nodules. KIDNEYS/BLADDER: Multiple subcentimeter hypoattenuating lesions along the inferior pole of the right kidney are too small to characterize and statistically likely reflect small cysts. No hydronephrosis is present. Multiple diverticula are seen along the urinary bladder. BOWEL: Diverticulosis of the colon. No acute inflammatory change. No obstruction. Hernia mesh is noted along the anterior abdominal wall. LYMPH NODES: No lymphadenopathy. VASCULATURE: Scattered vascular calcifications are seen in the abdominal aorta and iliac branches. IVC filter is noted within the inferior vena cava. Multiple varicose vessels are seen along the anterior and pelvic edgar. PELVIC ORGANS: Dystrophic calcifications are seen in the prostate gland. MUSCULOSKELETAL: Diffuse osteopenia is present. Multilevel degenerative changes are seen in the spine. IMPRESSION: 1. No evidence of pathological lymphadenopathy seen in the abdomen and pelvis. Several subcentimeter retroperitoneal lymph nodes are nonspecific and may be reactive. Suggest attention on follow-up exam. This report was electronically interpreted by: Deb Oconnell MD on 04/19/2023 at 16:18 Fabricio Rubio MD [address] [facility],[address], [place], [address], [facility] 04/22/2023 10:02:38 Procedures Surgical History Date Name Laterality Status Provider Name and Address Organization Details Recorded Time 04/01/20 BIOPSY OF PENIS (SURG) completed Fabricio Rubio MD [address] [place] [address],[address], [place], [address], [facility] 04/15/2023 12:08:12 total knee replacement completed Fabricio Rubio MD [address] [place] [address],[address], [place], [address], [facility] 03/13/2023 10:30:39 Appendectomy completed Fabricio Rubio MD [address] [place] [address],[address], [place], [address], [facility] 03/13/2023 10:30:51 cardiac pacemaker procedure completed Fabricio Rubio MD [address] [place] [address],[address], [place], [address], [facility] 03/13/2023 10:31:48 Imaging Results Imaging Date Name Status LastModified by Organiz ation Details LastModified Time 04/19/2023 XR, chest, 2 view completed [facility] [address] [place], [address], 04/22/2023 10:02:48 04/19/2023 CT, abdomen + pelvis, w/ contrast completed [facility] [address] [place], [address], 04/22/2023 21:16:03 Procedure Notes None recorded. Medical Equipment None Reported. Allergies No known drug allergies Medications Name Sig Start Date Stop Date Status Note LastModified by Organization Details LastModified Time atorvastati n 20 mg tablet TAKE 1 TABLET BY MOUTH AT BEDTIME active Not Available Not Available No t Available senna 8.6 mg tablet TAKE TWO TABLETS TWICE DAILY NEEDED FOR CONSTIPAT ION 03/13 completed Not Available Not Available Not Available acetaminoph en 500 mg tablet TAKE 1 TO 2 TABLETS BY MOUTH EVERY 6 HOURS NEEDED FOR PAIN active Not Available Not Available No t Available carvedilol 3.125 mg tablet active Not Available Not Available Not Available famotidine 20 mg tablet active Not Available Not Available Not Available tamsulosin 0.4 mg capsule TAKE 2 CAPSULES BY MOUTH EVERY EVENING active Not Available Not Available No t Available cephalexin 500 mg capsule 03/13 completed Not Available Not Available Not Available pantoprazol e 40 mg tablet,tamir yed release TAKE 1 TABLET BY MOUTH ONCE DAILY. active Not Available Not Available No t Available warfarin 5 mg tablet active Not Available Not Available No t Available oxycodone 5 mg tablet TAKE 1/2 TO 1 TABLET BY MOUTH EVERY 4 TO 6 HOURS NEEDED FOR PAIN. MAX PER DAY IS 6 TABLETS. DISCONTIN UE SHAYY 04/15 completed Not Available Not Available Not Available enoxaparin 80 mg/0.8 mL subcutaneou s syringe INJECT 80MG SUBCUTANE OUS EVERY 12 HOURS FOR 10 DAYS. OR DIRECTED 03/13 completed Not Available Not Available Not Available enoxaparin 100 mg/mL subcutaneou s syringe INJECT 1 SYRINGE SUBCUTANE OUSLY EVERY 12 HOURS ONCE INR BELOW 1.5. STOP THE EVENING BEFORE SURGERY. RESUME THE DAY AFTER UNTIL INR IS ABOUT 2 04/15 completed Not Available Not Available Not Available Entresto 49 mg-51 mg tablet TAKE 1 TWICE DAILY X 7 DAYS. THEN INCREASE TO 2 TABLETS TWICE DAILY active Not Available Not Available No t Available Vitals Date Recorded Body height Body mass index (BMI) Body weight Provider Name and Address Organization Details Last Updated DateTime 03/13/2023 180.34 cm 30.7 kg/m2 53607.32 g Fabricio Rubio MD [address] [place] [address], [address], [facility] 03/13/2023 10:29:05 Date Recorded Body height Body mass index (BMI) Body weight Provider Name and Address Organization Details Last Updated DateTime 04/15/2023 180.34 cm 30.7 kg/m2 30451.32 g Carolyne Wooten [facility] 04/15/2023 11:43:39 Social History Question Answer Notes LastModified by Organizat ion Details LastModified Time Tobacco Smoking Status Former Smoker Fabricio Rubio MD [address] [place] [address],[address], [address], [facility] 03/13/2023 10:30:22 What Is Your Level Of Alcohol Consumption? Occasional Information not available 03/13/2023 How Many Times Per Week Do You Consume Alcohol? 3-4 Times Per Week Information not available 03/13/2023 When Did You Quit Smoking? 16+yearssincela stcigarette >50 Yrs Ago Information not available 03/13/2023 What Was The Date Of Your Most Recent Tobacco Screening? 04/15/2023 [email or web address] Information not available 04/15/2023 Sex: Unknown Functional Status None recorded. Mental Status None recorded. Family History Nothing Reported. Medical History Condition Response Cancer Y GERD/Acid Reflux Y High Cholesterol N Past Encounters Encounter ID Performer Location Encounter Start Date Encounter Closed Date Diagnosis/Indication Diagnosis SNOMED-CT Code Diagnosis ICD10 Code [id number] Fabricio Rubio MD [facility] [address] [place] [address] 03/13/2023 10:25:11 03/20/2023 09:47:57 Lesion of penis 705258759 N48.9 Phimosis 049819847 N47.1 [id number] Fabricio Rubio MD [facility] [address] [place] [address] 04/15/2023 11:39:45 04/22/2023 11:42:50 Lesion of penis 602882569 N48.9 Squamous c ell carcinoma of penis 842029782 C60.9 Health Concerns Section Related Observation LastModified by Organization Detai ls LastModified Time None Recorded Concern Status LastModified by Organization Details LastModified Time None Recorded Advance Directives Directive None Recorded Payers Encounter Date Sequence Insurance Name Policy Number Policy Shanks Covered Member ID Shanks Member ID Guarantor Name 03/13/2023 1 [place] [id number] Harshad Ann [id number] Harshad Díaz Odaubrey 04/15/2023 1 [place] [id number] Harshad Ann [id number] Harshad Ann Notes Date Note Type Note Provider Name and Address Organization Details Recorded Time 03/13/2023 text/html HPI Notes: Mr. Ann is an 82 yoM who is referred to me by his PCP, Dr. Castañeda, regarding new penile lesion. Patient first noted this about 2 months ago. Reports no significant pain or weeping but somewhat uncomfortable. Seen today with his family who provides some of history. Fabricio Rubio MD [address] [place] [address],[address] [place] [address], [address], [facility] 03/13/2023 13:42:09 04/15/2023 text/html HPI Notes: Mr. Ann is an 82 yoM who is referred to me by his PCP, Dr. Castañeda, regarding new penile lesion. Patient first noted this about 2 months ago. Reports no significant pain or weeping but somewhat uncomfortable. Seen today with his family who provides some of history. 04/15/23: Here for follow up penile lesion no s/p excision. 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 Grade 3 moderate to poorly differentiated. Healing well. Seen today with his who provides some of the history. Fabricio Rubio MD [address] [place] [address],[address], [place], [address], [facility] 04/15/2023 12:10:26
--- NOTE | 2024-08-14 10:17 | P.ANES_ITS ---
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
== END 2024-08-14 08:41 | disposition home or self-care (01) ==
LOC: OP CLINIC 08:40
PROVIDERS: PCP Family Medicine; Visit Provider Internal Medicine Gastroenterology
DX: Z12.11 Encounter for screening for malignant neoplasm of colon (principal); D12.2 Benign neoplasm of ascending colon; K57.30 Diverticulosis of large intestine without perforation or abscess without bleeding; Z86.0101 Personal history of adenomatous and serrated colon polyps
CPT/HCPCS: 00811; 45385; 88305; 99100; J2704

== ENCOUNTER 2025-03-04 11:23 | Emergency (ER) | payer MEDICARE, SELFPAY ==
[2025-03-04] VITALS (24 sets, daily range): BP systolic 101–116; BP diastolic 62–81; PULSE 57–118; RESP 7–18; TEMP 36.2; O2SAT 90–100; BMI 30.4
--- OUTSIDE RECORDS SUMMARY | 2025-03-04 11:26 | XMS_ITS | Clinical Summary ---
Author Organization [facility] Address [address] [place] [address]. 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 Gender Identity Not on file Sexual Orientation Not on file Last Filed Vital Signs Vital Sign Reading Time Taken Comments Blood Pressure 132/73 01/06/2024 3:00 PM CDT Pulse 69 01/06/2024 3:00 PM CDT Temperature 36.2 C (97.1 F) 01/06/2024 2:43 PM CDT Respiratory Rate 16 01/06/2024 3:00 PM CDT [...] VACCINE (1 - 1-dose 75+ series) 2017 MEDICARE ANNUAL WELLNESS VISIT 04/11/2024 04/11/2023, 03/21/2022, 10/20/2020 COVID-19 Vaccine ( season) 2024 08/23/2023, 04/22/2023, 07/26/2022, Additional history exists PHQ-2 (once per calendar year) 2024 INFLUENZA VACCINE (Season Ended) 2025 06/25/2023, 07/26/2022, 07/17/2021, Additional history exists DTAP/TDAP/TD IMMUNIZATION (3 - Td or Tdap) 02/07/2033 02/07/2023, 01/11/2012 Pneumococcal Vaccine: 50+ Years Completed 06/06/2016, 01/11/2012 ZOSTER IMMUNIZATION Completed [...] MEDICARE ADVANTAGE BCBS MEDICARE ADVANTAGE Care Teams Carbon Paper Interleafer Relationship Specialty Start Date End Date Votel, Ervin Cash [address] [place] [address] PCP - General Family Medicine 12/02/23
--- OUTSIDE RECORDS SUMMARY | 2025-03-04 11:27 | XMS_ITS | Clinical Summary ---
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 Max acetaminophen dose: 4000mg in 24 hrs. 0 021 Active EPINEPHrine (EpiPen) 0.3 mg/0.3 mL auto-injectorIndica tions:Bee sting allergy Inject 0.3 mg intramuscularly one time if needed for allergic reaction. 2 Each 3 022 Active acetaminophen/diphe nhydramine (TYLENOL PM ORAL) Take 1-2 Tablets by mouth at bedtime if needed. Active melatonin 3 mg tablet Take 3 mg by mouth at bedtime. Active multivitamins-skip miner als-lutein (Multivitamin 50 Plus) tab tablet Take 1 Tablet by mouth once daily. Active furosemide (LASIX) 40 mg tabletIndications:S OB (shortness of breath) TAKE 1/2 TABLET(20MG) BY MOUTH ONCE DAILY IF NEEDED(WEIGHT>225L B OR INCREASED SHORTNESS OF BREATH/SWELLING. Further refills pending follow up appointment with Dr. Peacock 45 Tablet 3 024 Active atorvastatin (LIPITOR) 20 mg tabletIndications:H yperlipidemia, unspecified hyperlipidemia type Take 1 Tablet (20 mg) by mouth at bedtime. 90 Tablet 3 024 Active pantoprazole (PROTONIX) 40 mg delayed-release tabletIndications:G astroesophageal reflux disease without esophagitis Take 1 Tablet (40 mg) by mouth once daily. 90 Tablet 3 024 Active tamsulosin (FLOMAX) 0.4 mg capsuleIndications: Difficulty voiding TAKE 2 CAPSULES BY MOUTH EVERY EVENING 180 Capsule 3 024 Active metoprolol succinate (Toprol XL) 25 mg Sustained-Release tabletIndications:C hronic systolic congestive heart failure (HC) Take 1 Tablet (25 mg) by mouth once daily in the evening. 90 Tablet 3 024 Active losartan (COZAAR) 25 mg tabletIndications:C hronic systolic congestive heart failure (HC) Take 0.5 Tablets (12.5 mg) by mouth once daily. 45 Tablet 3 024 Active famotidine (PEPCID) 20 mg tabletIndications:H istory of gastroesophageal reflux (GERD) Take 1 Tablet (20 mg) by mouth once daily. 024 Active warfarin 5 mg tabletIndications:C hronic atrial fibrillation (HC),Primary hypercoagulable state (HC),Anticoagulatio n monitoring, INR range 2-3 Take by mouth 5 mg (5 mg x 1) every Mon, Wed, Fri; 7.5 mg (5 mg x 1.5) all other days in the evening OR as directed 120 Tablet 025 Active Active Problems Patient Care Coordination No te [...] -likely PAF over the past several years -[facility] ER on 01/12/13 persistent episode initiated [...] Personal history of colonic polyps 08/15/2005 Overview (08/19/2024): Colonoscopy 08/2013 polyps repeat in 5 years Colonoscopy 08/2024 TA, repeat in 5 years Other abnormal glucose 08/15/2005 Resolved Problems Problem Noted Date Diagnosed Date Resolved Date Venous stasis ulcer 10/22/2020 06/05/20 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 Juan Daniel Phoenix HYPERHOMOCYSTEINEMIA 08/15/2005 022 Overview (08/15/2005): Level of 13.8 on 06/22/2004 Maintained on [employer] Encounters Date Type Department Care Team Description 02/23/2025 Anticoagulation (warfarin) [facility] [place] [place] [address] 1, [facility] Anticoagulation 02/22/2025 11:45 AM CDT Orders Only [facility] [place] [facility] [place] [address] Lab, [facility] 02/22/2025 Travel 02/04/2025 Telephone [facility] [place] [address] Pankaj Teresa MD Results 02/01/2025 3:30 PM CDT Ancillary Procedure [facility] [place] [address] 02/01/2025 2:40 PM CDT Office Visit [facility] [place] [address] Pankaj Teresa MD Pain (Lt side- fell- still feeling a side ache while laying down ) 02/01/2025 Travel 01/13/2025 Telephone [facility] [place] [address] Ervin Castañeda MD Anticoagulation (Annual re-enrollment /) 12/29/2024 Refill [facility] [place] [address] Ervin Castañeda MD Refill Request (Warfarin) 12/18/2024 Anticoagulation (warfarin) [facility] [place] [address] 1, [facility] Anticoagulation 12/17/2024 Travel from Last 3 Months Immunizations Immunization Administration Dates Next Due AMB Influenza, IIV4 PF (=>6 mos Flulaval,Fluzone Fluarix)(Flu Clinic Only) 07/23/2013 Amb Influenza, Inact (High-d ose) (Flu Clinic Only) 07/22/2014 Amb Influenza, Inactivated A IIV4 (Age 65+ Years) Preserv Free 07/11/2020 COVID-19 VACCINE SPIKEVAX (M ODERNA 50MCG/0.5ML) 12YO+ PFS 07/29/2024 COVID-19 vaccine ([employer] LimitedBio NTech 30mcg/0.3mL) 12YO+ BIVALENT PF, MDV 04/22/2023,07/26/2022 COVID-19 vaccine (itBit NTech 30mcg/0.3mL) 12YO+ MARY ALICE-SUCROSE PF, MDV 01/29/2022 COVID-19 vaccine (itBit NTech 30mcg/0.3mL) PF, MDV 07/17/2021,12/01/2020,11/10/2020 Hepatitis A [...] Relation Name Comments Heart Disease Brother 2 MD Diabetes Brother 3 Diabetes Brother 4 Diabetes Brother 5 Other Mother dvt Relation Name Status Comments Brother 1 (Age 56) MD Brother 2 Brother 3 Brother 4 Brother 5 Mother Social History Tobacco Use Types Packs/Day Years Used Date Smoking Tobacco: Former Cigarettes Q uit: 1968 Smokeless Tobacco: Never Tobacco Cessation:Counseling Given: No Alcohol Use Standard Drinks/Week Comments Yes 1 (1 standard drink = 0.6 oz pur [...] is your housing situation today? 1 05/06/2024 Interpersonal Safety Answer Date Record ed Are you being hit, kicked, p ushed or yelled at (see row info)? No 02/12/2024 Interpersonal Safety Abuse 12 - 18 Not on file 02/12/2024 Interpersonal Safety Ambulatory Vulnerability No t on file 02/12/2024 Utilities Answer Date Recorded Do you have trouble paying f or utilities (for example, heat, electricity, water, phone)? 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 Not on file Not on file Not on file Obstetrics History Last Filed Vital Signs Vital Sign Reading Time Taken Comments Blood Pressure 117/78 02/01/2025 2:45 PM CDT Pulse 80 02/01/2025 2:45 PM CDT Temperature 36.3 C (97.4 F) 08/04/2024 9:59 AM CDT Respiratory Rate 18 02/13/2024 7:53 AM CDT Oxygen Saturation 98% 02/01/2025 2:45 PM CDT Inhaled Oxygen Concentration - - Weight 110.3 kg (243 lb 1.6 oz) 02/01/2025 2:45 PM CDT Height 182.9 cm (6') 08/25/2024 11:26 AM [employer]ER Body Mass Index 32.97 08/25/2024 11:26 AM CR[employer]ENSE LAWYER Plan of Treatment Upcoming Encounters Date Type Department Care Team (Late st Contact Info) Description 03/05/2025 8:00 AM CDT Office Visit [facility] [address] [facility] [address] [place] [address] Carlos Peacock MD [address] [facility] [address] [place], [place] [id number] 04/20/2025 10:00 AM CDT Cardiac Device Check [facility] [place] [facility] [address] [place] [address] Health Maintenance Due Date Last Done Comments COVID-19 vaccine series ( season) 2025 07/29/2024, 08/23/2023, 04/22/2023, Additional history exists Depression screening for age 12+ 05/06/2025 05/06/2024 Medicare Wellness for age 65+ 05/07/2025 05/06/2024, 04/11/2023, 03/21/2022, Additional history exists BMI (ht and wt on same day) for age 18+ 08/25/2025 08/25/2024, 08/04/2024, 05/12/2024, Additional history exists Tetanus booster 02/07/2033 02/07/2023, 01/11/2012 Pneumococcal series for age 50+ Completed 06/06/2016, 01/11/2012 Tdap Completed 02/07/2023, 01/11/2012 Zoster (shingles) series for age 50+ Completed 07/10/2023, 02/07/2023, 01/11/2014 RSV vaccine for adults or Completed 09/10/2023 Influenza Vaccine Completed 07/29/2024, , 07/26/2022, Additional history exists Hepatitis B series for 19+ Aged Out N o longer eligible based on patient's age to complete this topic Medical Devices Implanted Type Area Cancer Researcher Device Identifier Shelf Expiration Date Model / Serial / Lot [id number] - [id number] Implanted:Qty: 1 on 08/14/2005 at [facility] Grafts Abdomen DAVOL [id number] / / [id number] Procedures Procedure Name Priority Date/Time Associated Diagnosis Comments BASIC METABOLIC PANEL Routine 02/22/2025 12:16 PM CDT Chronic systolic congestive heart failure (HC) PRO-BNP Routine 02/22/2025 12:16 PM CDT Chronic systolic congestive heart failure (HC) PROTIME-INR Routine 02/22/2025 12:15 PM CDT Chronic atrial fibrillation (HC) LUPUS ANTICOAGULANT POSITIVE Anticoagulation monitoring, INR range 2-3 XR RIBS LEFT AND PA CHEST MINIMUM 3 VIEWS Routine 02/01/2025 3:31 PM CDT Accidental fall, initial encounter Rib pain on left side PROTIME-INR Routine 12/17/2024 3:58 PM [employer]YER Chronic atrial fibrillation (HC) LUPUS ANTICOAGULANT POSITIVE Anticoagulation monitoring, INR range 2-3 from Last 3 Months Results * PRO-BNP (02/22/2025 12:16 PM CDT) NT PROBNP 228 <450 pg/mL [facility] Blood BLOOD SPECIMEN / Unknown 02/22/2025 12:16 PM CDT 02/22/2025 12:17 PM CDT us Carlos Peacock MD SEND OUTS Final Res ult [facility] [address] [place] [address], [place] [phone] [facility] [address] [place] [address] * (ABNORMAL) BASIC METABOLIC PANEL (02/22/2025 12:16 PM CDT) [facility] GLUCOSE 89 65 - 99 mg/dL [employer] [facility] Comment: Fasting reference interval UREA NITROGEN (BUN) 19 7 - 25 mg/dL [facility] CREATININE 1.13 0.70 - 1.22 mg/dL [facility] EGFR 65 > OR = 60 mL/min/1. 73m2 [facility] BUN/CREATININE RATIO SEE NOTE: 6 - 22 (calc) [facility] Comment: Not Reported: BUN and Creatinine are within reference range. SODIUM 139 135 - 146 mmol/L [facility] POTASSIUM 4.7 3.5 - 5.3 mmol/L [facility] CHLORIDE 103 98 - 110 mmol/L [facility] CARBON DIOXIDE 30 20 - 32 mmol/L [facility] ELECTROLYTE BALANCE 6(L) 7 - 17 mmol/L (calc) [facility] CALCIUM 9.1 8.6 - 10.3 mg/dL [facility] Blood BLOOD SPECIMEN / Unknown 02/22/2025 12:16 PM CDT 02/22/2025 12:17 PM CDT Carlos Peacock MD CHEMISTRY Final Res ult [facility] [address] [place] [address], [place] [phone] [facility] [address] [place] [address] * (ABNORMAL) PROTIME-INR [47097.0] - Standing Order (02/22/2025 12:15 PM CDT) Only the most recent of2 resultswithin the time period is included. [facility] INR 3.4(H) <1.3 02/22/2025 10:30 PM CDT [facility] PROTIME 40.0(H) 10.6 - 12.4 sec 02/22/2025 10:30 PM CDT [facility] Blood BLOOD SPECIMEN / Unknown [facility] / Unknown 02/22/2025 12:15 PM CDT 02/22/2025 12:15 PM CDT Narrative [facility] - 02/22/2025 10:30 PM CDT Therapeutic Range 2.0-3.0 for most anticoagulated patients 2.5-3.5 or 4.0 for high risk patients The INR is only used for patients on stable oral anticoagulant therapy. It makes no significant contribution to the diagnosis or treatment of patients whose Protime is prolonged for other reasons. INR results are increased when heparin levels exceed 1.0 U/mL, which corresponds to an aPTT >125 seconds if the patient is on UFH. us Ervin Castañeda MD HEMATOLOGY Final Re sult [facility] [address] [place] [address], * XR RIBS LEFT AND PA CHEST MINIMUM 3 VIEWS (02/01/2025 3:31 PM CDT) Anatomical Region Laterality Modality RIBS, RIBS L, CHEST Computed Rad iography 02/04/2025 10:1 5 AM CDT Impressions 02/04/2025 10:15 AM CDT Acute mildly displaced fracture of the left anterior 9th rib. No acute cardiopulmonary disease. Dictated by Lizandro Mancini MD @ 02/04/2025 10:15:20 AM (Electronically Signed) Narrative 02/04/2025 10:15 AM CDT For Patients: As a result of the Cures Act, medical imaging exams and procedure reports are released immediately into your electronic medical record. You may view this report before your referring provider. If you have questions, please contact your health care provider. INDICATION: Accidental fall, initial encounter COMPARISON: 02/13/2024 TECHNIQUE: PA chest and left ribs. FINDINGS: There is a mildly displaced fracture of the left anterior 9th rib. No pneumothorax. Dependent areas of atelectasis/scarring in both lung bases. Cardiomegaly. Procedure Note Lizandro Mancini MD - 02/04/2025 For Patients: As a result of the Cures Act, medical imagingexams and procedure reports are released immediately into your electronicmedical record. You may view this report before your referring provider.If you have questions, please contact your health care provider. INDICATION: Accidental fall, initial encounter COMPARISON: 02/13/2024 TECHNIQUE: PA chest and left ribs. FINDINGS: There is a mildly displaced fracture of the left anterior 9th rib. Nopneumothorax. Dependent areas of atelectasis/scarring in both lung bases.Cardiomegaly. IMPRESSION: Acute mildly displaced fracture of the left anterior 9th rib. No acutecardiopulmonary disease. Dictated by Lizandro Mancini MD @ 02/04/2025 10:15:20 AM (Electronically Signed) Pankaj Teresa MD GENERAL IMAGING Final Result from Last 3 Months Insurance MEDICARE PART A HB ONLY BLUE CROSS MEDICARE ADVANTAGE MEDICARE PROVIDER BASED 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
--- NOTE | 2025-03-04 12:20 | CRLHL7_ITS ---
For Patients: As a result of the Cures Act, medical imaging exams and procedure reports are released immediately into your electronic medical record. You may view this report before your referring provider. If you have questions, please contact your health care provider. INDICATION: Shortness of breath. TECHNIQUE: Chest 2 views. COMPARISON: X-ray chest November 2015 FINDINGS/ IMPRESSION: Stable cardiomegaly without pulmonary edema. Left-sided cardiac defibrillator is in place. Aortic valve replacement. No focal consolidation, effusion or pneumothorax. Multilevel degenerative changes of the spine. Dictated by Miles Lopez MD @ 03/04/2025 1:38:37 PM (Electronically Signed)
--- NOTE | 2025-03-04 12:25 | ED_ITS ---
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 today, 1-1/2 hours ago, he stated that his vision started going marie and he felt slightly short of breath. He had to sit down and within a few minutes felt better. He then stood up to get back to work and the sensation returned. He stated that he had to sit for about 20 minutes before he felt better. He was then helped to the car and came to the emergency department. He states that the same thing happened yesterday x2. However yesterday he was sitting at home not doing anything when the episodes occurred. Episodes lasted less than 5 minutes. He denies feeling a fluttering in his chest, he does not have any chest pain. He denies headache, blurry vision or double vision. He denies any ringing in his ears. Patient does have a dual pacemaker in place. He denies confusion, difficulty finding words, no neurologic deficits. Related Data Home Medications ?Medication ?Instructions ?Recorded ?Confirmed acetaminophen 650 mg 1,300 mg PO BID 08/06/22 tablet,extended release (8 Hour Pain Reliever) atorvastatin 20 mg tablet 20 mg PO HS 08/06/22 5 epinephrine 0.3 mg/0.3 mL 0.3 ml IM Q5-15M PRN 2 03/04/25 injection, auto-injector (Auvi-Q) famotidine 20 mg tablet 20 mg PO BID 08/06/22 pantoprazole 40 mg tablet,delayed 40 mg PO DAILY 08/0603/04/25 release tamsulosin 0.4 mg capsule 0.8 mg PO HS 08/06/22 warfarin 5 mg tablet 5 - 7.5 mg PO DAILY 08/06/22 03/04/25 metoprolol tartrate 25 mg tablet mg PO DAILY 09/27/24 09/27/24 Allergies Allergy/AdvReac Type Severity Reaction Status Date / Time bee venom protein (honey bee) Allergy Intermediate Anaphylaxis Verified 03/04/25 11:33 Review of Systems Status of ROS: Reports: 10 or more systems reviewed and unremarkable except as noted in History and below [facility] Medical History 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 - Toxic effect of venom of bees, accidental (unintentional), initial encounter (ICD-10) Lupus anticoagulant positive ?R76.0 - Raised antibody titer (ICD-10) Pacemaker ?Z95.0 - Presence of cardiac pacemaker (ICD-10) HONORIO (obstructive sleep apnea) ?G47.33 - Obstructive sleep apnea (adult) (pediatric) (ICD-10) Atrial fibrillation and flutter ?I48.91 - Unspecified atrial fibrillation (ICD-10) ?I48.92 - Unspecified atrial flutter (ICD-10) H/O prostate cancer ?Z85.46 - Personal history of malignant neoplasm of prostate (ICD-10) History of pulmonary embolism ?Z86.711 - Personal history of pulmonary embolism (ICD-10) Factor V Leiden mutation ?D68.51 - Activated protein C resistance (ICD-10) Chronic anticoagulation ?Z79.01 - senior care (current) use of anticoagulants (ICD-10) Diverticulitis ?K57.92 - Diverticulitis of intestine, part unspecified, without perforation or abscess without bleeding (ICD-10) Surgical History Hx of total knee arthroplasty (08/07/22) ?Z96.659 - Presence of unspecified artificial knee joint (ICD-10) Status post ablation of atrial fibrillation ?Z98.890 - Other specified postprocedural states (ICD-10) ?Z86.79 - Personal history of other diseases of the circulatory system (ICD- 10) History of appendectomy (~2002) ?Z90.49 - Acquired absence of other specified parts of digestive tract (ICD- 10) History of bunionectomy of left great toe (~1984) ?Z98.890 - Other specified postprocedural states (ICD-10) History of medial meniscus repair of left knee (1962) ?Z98.890 - Other specified postprocedural states (ICD-10) Family History Father Prostate cancer Brother Prostate cancer Kidney failure Myocardial infarction Diabetes High blood pressure Mother COPD (chronic obstructive pulmonary disease) High blood pressure Social History Smoking Status: Former smoker What tobacco products do you use: cigarettes Years smoked: 5 Smoking quit date/years: >15 years ago Do you use any of these nicotine containing products: None How often do you have a drink containing alcohol: 2-3 times a week Alcohol type: beer How many standard drinks containing alcohol do you have on a typical day: 1 or 2 How often do you have six or more drinks on one occasion: Never AUDIT-C Alcohol total score: 3 Non-prescribed substance use: denies use Caffeine: Yes (~6 cups/day) Exam Narrative: Exam Narrative: Well-nourished well-developed elderly patient in no acute distress. Alert and oriented. Answers questions appropriately. Mood and affect are appropriate. Thoughts are goal oriented and rational. No tangential or magical thinking noted. Patient speaks in full sentences without needing to catch his breath. HEENT: Normocephalic atraumatic. Pupils are equally round reactive to light. Extraocular muscles are intact. Conjunctivae are moist without any icterus noted. Moist mucous membranes. Cardiovascular: Heart is regular rate and rhythm S1 and S2 are present without any murmurs. Lungs: Clear to auscultation bilaterally no wheezes rhonchi or rales are appreciated. Abdomen: Soft and nontender nondistended with normal bowel sounds. Extremities: Left lower extremity with trace edema, right lower extremity with 1+ pitting edema and chronic venous stasis skin changes. Skin: Well perfused. Strength is 5/5 of the upper and lower extremities. Reflexes are 2+ and symmetric at the knees. Cranial nerves 3-12 are grossly normal. Cqrsas-[id number] is normal. There is no nystagmus either horizontally or vertically. Const: Vital Signs, click to edit/add: Vital Signs - 24 hr 03/04/25 11:28 03/04/25 11:55 03/04/25 12:00 Temperature 97.1 F L Pulse Rate 77 76 Pulse Rate [Right Pulse Oximeter] 75 Pulse Rate [orthos tatic lying] Pulse Rate [orthos tatic sitting] Pulse Rate [orthos tatic standing] Respiratory Rate 18 7 L Blood Pressure Blood Pressure [Ri ght Upper Arm] 116/73 Blood Pressure [or thostatic lying] Blood Pressure [or thostatic sitting] Blood Pressure [or thostatic standing ] Pulse Oximetry 100 99 98 Oxygen Delivery Me thod Room Air 03/04/25 12:02 03/04/25 12:15 03/04/25 12:21 Temperature Pulse Rate 74 76 74 Pulse Rate [Right Pulse Oximeter] Pulse Rate [orthos tatic lying] Pulse Rate [orthos tatic sitting] Pulse Rate [orthos tatic standing] Respiratory Rate 14 10 L Blood Pressure 109/62 114/81 Blood Pressure [Ri ght Upper Arm] Blood Pressure [or thostatic lying] Blood Pressure [or thostatic sitting] Blood Pressure [or thostatic standing ] Pulse Oximetry 98 100 100 Oxygen Delivery Me thod 03/04/25 12:23 03/04/25 12:25 03/04/25 12:30 Temperature Pulse Rate 78 118 H 75 Pulse Rate [Right Pulse Oximeter] Pulse Rate [orthos tatic lying] Pulse Rate [orthos tatic sitting] Pulse Rate [orthos tatic standing] Respiratory Rate 11 L 11 L 13 Blood Pressure 116/76 105/66 Blood Pressure [Ri ght Upper Arm] Blood Pressure [or thostatic lying] Blood Pressure [or thostatic sitting] Blood Pressure [or thostatic standing ] Pulse Oximetry 99 90 98 Oxygen Delivery Me thod 03/04/25 12:42 03/04/25 12:45 03/04/25 12:50 Temperature Pulse Rate 71 73 Pulse Rate [Right Pulse Oximeter] Pulse Rate [orthos tatic lying] 71 Pulse Rate [orthos tatic sitting] 90 Pulse Rate [orthos tatic standing] 75 Respiratory Rate Blood Pressure 112/78 Blood Pressure [Ri ght Upper Arm] Blood Pressure [or thostatic lying] 114/81 Blood Pressure [or thostatic sitting] 116/76 Blood Pressure [or thostatic standing ] 105/66 Pulse Oximetry 100 100 Oxygen Delivery Me thod 03/04/25 13:00 03/04/25 13:02 03/04/25 13:25 Temperature Pulse Rate 73 74 Pulse Rate [Right Pulse Oximeter] Pulse Rate [orthos tatic lying] Pulse Rate [orthos tatic sitting] Pulse Rate [orthos tatic standing] Respiratory Rate 15 Blood Pressure 113/72 Blood Pressure [Ri ght Upper Arm] Blood Pressure [or thostatic lying] Blood Pressure [or thostatic sitting] Blood Pressure [or thostatic standing ] Pulse Oximetry 95 93 Oxygen Delivery Me thod 03/04/25 13:26 03/04/25 13:30 03/04/25 13:42 Temperature Pulse Rate 83 72 71 Pulse Rate [Right Pulse Oximeter] Pulse Rate [orthos tatic lying] Pulse Rate [orthos tatic sitting] Pulse Rate [orthos tatic standing] Respiratory Rate 10 L Blood Pressure 108/75 Blood Pressure [Ri ght Upper Arm] Blood Pressure [or thostatic lying] Blood Pressure [or thostatic sitting] Blood Pressure [or thostatic standing ] Pulse Oximetry 99 98 97 [facility] 03/04/25 13:45 03/04/25 14:00 03/04/25 14:02 Temperature Pulse Rate 57 L 71 70 Pulse Rate [Right Pulse Oximeter] Pulse Rate [orthos tatic lying] Pulse Rate [orthos tatic sitting] Pulse Rate [orthos tatic standing] Respiratory Rate 14 17 12 Blood Pressure 101/72 Blood Pressure [Ri ght Upper Arm] Blood Pressure [or thostatic lying] Blood Pressure [or thostatic sitting] Blood Pressure [or thostatic standing ] Pulse Oximetry 98 98 99 [facility] 03/04/25 14:15 03/04/25 14:22 03/04/25 14:30 Temperature Pulse Rate 71 72 73 Pulse Rate [Right Pulse Oximeter] Pulse Rate [orthos tatic lying] Pulse Rate [orthos tatic sitting] Pulse Rate [orthos tatic standing] Respiratory Rate 11 L 12 Blood Pressure 106/66 Blood Pressure [Ri ght Upper Arm] Blood Pressure [or thostatic lying] Blood Pressure [or thostatic sitting] Blood Pressure [or thostatic standing ] Pulse Oximetry 96 99 97 [facility] Course Course ED Course: EKG, read by me, shows an AV dual paced rhythm with a pulse of 71. Orthostatic vitals were unremarkable. However the patient complained of the sensation of that grayness coming over his vision when he went from a lying to a sitting position. This resolved with rest in the sitting position in less than a minute and he was able to stand without difficulty. Blood pressures ran in the low 1 100s to 1 teens systolic throughout his stay. Because of this we did go ahead and start him on 250 mL of normal saline over an hour. Chest x-ray did not show any acute pathology. CBC was unremarkable. His INR is therapeutic. Chemistries were normal. Normal magnesium. Normal LFTs. Normal troponin. CRP less than 0.5. BNP 231. UA showing 1+ ketones, 1+ bili and trace leukocyte esterase Normal lactate. Consulted with Dr. Khna, cardiology at [facility], who will send a message to the pacemaker nurse to interrogate his device. In the meantime, recommends proper nutrition and outpatient follow-up. Vital Signs Vital signs: Initial Vital Signs Temperature 97.1 F L 03/04/25 11:28 Temperature Source Temporal Artery Scan 03/04/25 11:28 Pulse Rate 75 03/04/25 11:28 Pulse Rhythm Regular 03/04/25 11:28 Pulse Strength 3+ Normal 03/04/25 11:28 Respiratory Rate 18 03/04/25 11:28 Blood Pressure 116/73 03/04/25 11:28 Blood Pressure Mean 87 03/04/25 11:28 Blood Pressure Position Sitting 03/04/25 11:28 Pulse Oximetry 100 03/04/25 11:28 Oxygen Delivery Method Room Air 03/04/25 11:28 Vital Signs Temperature 97.1 F L 03/04/25 11:28 Pulse Rate 75 03/04/25 11:28 Respiratory Rate 18 03/04/25 11:28 Blood Pressure 116/73 03/04/25 11:28 Pulse Oximetry 100 03/04/25 11:28 Oxygen Delivery Method Room Air 03/04/25 11:28 Temperature 97.1 F L 03/04/25 11:28 Pulse Rate 73 03/04/25 14:30 Respiratory Rate 12 03/04/25 14:30 Blood Pressure 106/66 03/04/25 14:22 Pulse Oximetry 97 03/04/25 14:30 Oxygen Delivery Method Room Air 03/04/25 11:28 Medications Administered Medications: Discontinued Medications Generic Name Dose Route Start Last Admin Trade Name Freq PRN Reason Stop Dose Admin Sodium Chloride 250 mls @ 250 mls/hr 03/04/25 13:42 03/04/25 13:53 0.9 % Sodium Chloride 250 Ml IV 03/04/25 14:41 250 mls/hr .Q1H ONE Administration Medical Decision Making MDM Narrative Medical decision making narrative: 84-year-old male with presyncopal episodes. Unclear etiology at this time. The patient has no neurologic deficits which would be concerning for a TIA or stroke. 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 However, again cardiology team at [place] will have his pacemaker interrogated. No electrolyte abnormalities or evidence of significant anemia causing his symptoms. No evidence of orthostatic hypotension. Patient will be discharged home at this time for outpatient follow-up. Lab Data Lab results reviewed: Yes I reviewed the patient's lab results Labs: Lab Results 03/04/25 03/04/25 Range/Units 12:30 13:11 WBC 7.60 (4.50-11.00) K/uL RBC 4.14 L (4.30-5.90) m/uL Hgb 13.3 L (13.5-17.5) gm/dL Hct 40.1 (37.0-53.0) % MCV 97 (80-100) fL MCH 32 (26-34) pg MCHC 33 (32-36) gm/dL RDW Coeff of Dora 12.8 (11.5-15.5) % Plt Count 186 (140-440) K/uL Neut % (Auto) 75.2 H (42.0-72.0) % Lymph % (Auto) 15.5 L (20-44) % Angelina % (Auto) 6.8 (0.0-11.0) % Eos % (Auto) 1.8 (0.0-7.0) % Baso % (Auto) 0.4 (0.0-3.0) % Neut # (Auto) 5.70 (1.7-7.0) K/uL Lymph # (Auto) 1.20 (0.90-2.90) K/uL Angelina # (Auto) 0.50 (0.00-0.90) K/UL Eos # (Auto) 0.14 (0.00-0.50) K/uL Baso # (Auto) 0.03 (0.00-0.30) K/uL Abs Immat Gran (auto) 0.02 (0.00-0.30) K/uL Imm/Tot Granulo (auto) 0.3 % INR 2.40 H (0.91-1.10) Sodium 136 (135-149) mmol/L Potassium 4.1 (3.6-5.1) mmol/L Chloride 103 (96-114) mmol/L Carbon Dioxide 26 (20-32) mmol/L Anion Gap 7 (7-15) mEq/L BUN 20 (7-30) mg/dL Creatinine 1.3 (0.5-1.5) mg/dL Estimated Creat Clear 48.09 Estimated GFR 55 ml/min Glucose 102 (60-115) mg/dL Lactate 1.5 (0.5-1.9) mmol/L Calcium 9.1 (8.4-10.6) mg/dL Magnesium 1.8 (1.5-2.6) mg/dL Total Bilirubin 0.7 (0.1-1.5) mg/dL Direct Bilirubin 0.3 (0.0-0.5) mg/dL AST 34 (12-35) U/L ALT 20 (4-50) U/L Alkaline Phosphatase 57 (40-150) U/L Troponin I < 0.01 (0.01-0.04) ng/mL C-Reactive Protein < 0.5 L (0.5-1.0) mg/dL NT-Pro-B Natriuret Pep 231 pg/mL Total Protein 7.0 (6.0-8.3) g/dL Albumin 4.4 (3.3-5.0) g/dL TSH 3.630 (0.270-4.20) uIU/mL Urine Color Dark yellow (Yellow) Urine Appearance Clear (Clear) Urine pH 7.5 (5.0-8.5) Ur Specific [place] 1.015 (1.000-1.030) Urine Protein Trace A (Negative) Urine Glucose (UA) Negative (Negative) Urine Ketones 1+ A (Negative) Urine Blood Negative (Negative) Urine Nitrite Negative (Negative) Urine Bilirubin 1+ A (Negative) Urine Urobilinogen 1.0 (0.2-1.0) Ur Leukocyte Esterase Trace A (Negative) Urine RBC 0-2 (0-2) Urine WBC 0-2 (0-5) Ur Squamous Epith Cells None (None-Few) Other Sediment FEW HYALINE CASTS (None) Urine Bacteria None (None) Urine Mucus Few A (None) SARS-CoV-2 (PCR) Negative SARS-CoV-2 (Negative) Imaging Data Chest x-ray: Attestation: I have reviewed the pertinent imaging results. Radiologist's impression: TECHNIQUE: Chest 2 views. COMPARISON: X-ray chest November 2015 FINDINGS/ IMPRESSION: Stable cardiomegaly without pulmonary edema. Left-sided cardiac defibrillator is in place. Aortic valve replacement. No focal consolidation, effusion or pneumothorax. Multilevel degenerative changes of the spine. ECG Data Attestation: I personally reviewed and interpreted this ECG as follows: Discharge Plan Discharge Clinical Impression: Pre-syncope Patient Disposition: Home, Self-Care Condition: Stable Instructions: Near Syncope (ED) Additional Instructions: Move slowly over the next few days, be careful when you go from a lying to a sitting position and when you go from sitting to standing. The cardiology team at [facility] will call your pacemaker nurse to have your pacemaker interrogated to make sure it is working properly. Someone should call you in the next 1-2 days. If this does not occur then you should call your tobacco grader. Recommend you follow-up with your primary care provider Saturday of this week or early next week. Return to the emergency department if you pass out or if the frequency of these events increases. Prescriptions: No Action metoprolol tartrate 25 mg tablet PO DAILY acetaminophen [8 Hour Pain Reliever] 650 mg tablet extended release 1,300 mg PO BID atorvastatin 20 mg tablet 20 mg PO HS Patient Comments: TAKE 1 TABLET BY MOUTH AT BEDTIME epinephrine [Auvi-Q] 0.3 mg/0.3 mL auto-injector 0.3 ml IM Q5-15M PRN famotidine 20 mg tablet 20 mg PO BID pantoprazole 40 mg tablet,delayed release (DR/EC) 40 mg PO DAILY Patient Comments: TAKE 1 TABLET BY MOUTH ONCE DAILY tamsulosin 0.4 mg capsule 0.8 mg PO HS Patient Comments: TAKE 2 CAPSULES BY MOUTH EVERY EVENING warfarin 5 mg tablet 5 - 7.5 mg PO DAILY Rx Instructions: 7.5 mg Mon-Wed-Fri 5 mg other days Follow Up/Referrals: Ervin Castañeda MD [Primary Care Provider, Family Practice] Stand Alone Forms: 3TIER Info Instructions
[2025-03-04 12:46] LABS: Lactate* 1.5 mmol/L (0.5-1.9)
[2025-03-04 12:47] LABS: Basophils Absolute Auto 0.03 K/uL (0.00-0.30); Basophils Percent Auto 0.4 % (0.0-3.0); Eosinophils Absolute Auto 0.14 K/uL (0.00-0.50); Eosinophils Percent Auto 1.8 % (0.0-7.0); Hematocrit 40.1 % (37.0-53.0); Hemoglobin* 13.3 gm/dL (13.5-17.5); Immature Granulocytes Abs Auto 0.02 K/uL (0.00-0.30); Immature Granulocytes Pct Auto 0.3 %; Lymphocytes Percent Auto 15.5 % (20-44); Mean Corpuscular HGB Conc 33 gm/dL (32-36); Mean Corpuscular Hemoglobin 32 pg (26-34); Mean Corpuscular Volume 97 fL (80-100); Monocytes Percent Auto 6.8 % (0.0-11.0); Neutrophils Percent Auto 75.2 % (42.0-72.0); Platelet Count* 186 K/uL (140-440); RDW Coefficient of Variation % 12.8 % (11.5-15.5); Red Blood Count 4.14 m/uL (4.30-5.90)
[2025-03-04 12:48] LABS: Slide Review Reflex No
--- OUTSIDE RECORDS SUMMARY | 2025-03-04 12:50 | XMS_ITS | Data Portability ---
Author Organization [place] [facility] Address [address] [place] [address] Care Team Providers Care Binder Stripper Machine Name Role Phone VOTEL, KIKI Referring Provider [phone] Assessment Encounter Date Assessment Date Assessment LastModified [...] Surgeries biopsy of penis (SURG) 2022 023 [email or web address] Not available 3 10:04:[address], abdomen + pelvis, w/ contrast [address] [facility] [address] [place], [address], 3 11:42:50 XR, chest, 2 view [address] [facility] , [address] [place], [address], 3 11:42:51 Medication Orders None recorded. Patient TargetsNo targets recorded. Patient InstructionsNo instructions recorded. Reason for Referral None Reported. Results Created Date Observation Date Name Description Value Unit Range Abnormal Flag Note LastModifiedBy Organization Detail LastModifiedTime 04/19/20 23 04/19/2023 XR, chest , 2 view EXAM: XR, CHEST, 2 VIEW LOCATI ON: [facility] [place] DATE: 04/19/20 INDICA TION: Malign ant neopla [...] Deb Oconnell MD on 2022 at 16:04 [facility] [address], [place], [address], 04/22/2023 10:02:48 04/19/2004/19/2023 CT, abdom en + pelvi s, w/ contr ast EXAM: CT, ABDOME N + PELVIS , W/ CONTRA ST LOCATI ON: [facility] [place] DATE: 04/19/20 INDICA TION: Malign ant neopla [...] Deb Oconnell MD on 2022 at 16:18 [facility] [address], [place], [address], 04/22/2023 21:16:03 Result Notes None recorded. Procedures Surgical History Date Name Laterality Status Provider Name and Address Organization Details Recorded Time 04/01/20 23 BIOPSY OF PENIS (SURG) completed Fabricio Rubio MD [address] [place] [address],[address], [place], [address], [facility] [place] [facility] 04/15/2023 12:08:12 total knee replacement completed Fabricio Rubio MD [address], [place], [address], [facility] 03/13/2023 10:30:39 Appendectomy completed Fabricio Rubio MD [address], [place], [address], [facility] 03/13/2023 10:30:51 cardiac pacemaker procedure completed Fabricio Rubio MD [address], [place], [address], [facility] 03/13/2023 10:31:48 Imaging Results Imaging Date Name Status LastModified by Organiz ation Details LastModified Time 04/19/2023 XR, chest, 2 view completed [email or web address] [address] [place], [address], 04/22/2023 10:02:48 04/19/2023 CT, abdomen + pelvis, w/ contrast completed [facility] [address] [place], [address], 04/22/2023 21:16:03 Procedure Notes None recorded. Medical [...] Updated DateTime 03/13/2023 180.34 cm 30.7 kg/m2 87116.32 g Fabricio Rubio MD [address] [place] [address],[address] [address] 03/13/2023 10:29:05 Date Recorded Body height Body mass index (BMI) Body weight Provider Name and Address Organization Details Last Updated DateTime 04/15/2023 180.34 cm 30.7 kg/m2 61124.32 g Carolyne Wooten [facility] 04/15/2023 11:43:39 Social History Question Answer Notes LastModified by [employer] Details LastModified Time Tobacco Smoking Status Former Smoker Fabricio Rubio MD [address] [place] [address],[address], [address] 03/13/2023 10:30:22 When Did You Quit Smoking? 16+yearssin celastcigar ette >50 Yrs Ago Information not available 03/13/2023 What Was The Date Of Your Most Recent Tobacco Screening? 04/15/2023 [email or web address] Information not available 04/15/2023 Sex: Unknown Functional Status Question Answer Note LastModified by [employer] Details LastModified Time How many times per week do you consume alcohol? 3-4 times per week Information not available 03/13/2023 What is your level of alcohol consumption? [email or web address] Information not available 03/13/2023 Mental Status None recorded. Family History Nothing Reported. Medical History Condition Response GERD/Acid Reflux Y Cancer Y High Cholesterol N Past Encounters Encounter ID Performer Location Encounter Start Date Encounter Closed Date Diagnosis/Indication Diagnosis SNOMED-CT Code Diagnosis ICD10 Code Diagnosis Note [id number] Fabricio Rubio MD _[place] [address] [place] [address] 03/13/2023 10:25:11 03/20/2023 09:47:57 Lesion of penis 964388771 N48.9 - We discussed differenti al diagnosis of Condyloma vs Verrucous Carcinoma. We discussed that surgical excision with pathologic evaluation would be the only way to prove its nature- We discussed the risks and benefits including: bleeding, surgical site infection, incomplete resection, damage to neighborin g structures , and need for additional procedures /treatment . Phimosis [id number] N47.1 [id number] Fabricio Rubio MD _[place] [address] [place] [address] 04/15/2023 11:39:45 04/22/2023 11:42:50 Lesion of penis 985784610 N48.9 - S/p excision. 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 Grade 3 moderate to poorly differenti ated. Squamous c ell carcinoma of penis [id number] C60.9 - Staging work up with CT A/P and CXR- On exam there are no palpable inguinal nodes- We discussed recommenda tion for bilateral inguinal lymph node dissection given his T1b disease.-I will have him follow-up with Dr. Jordana granados Health Concerns Section Related Observation LastModified by Organization Detai ls LastModified Time None Recorded Concern Status LastModified by Organization Details LastModified Time None Recorded Advance Directives Directive None Recorded Payers Insurance Date Sequence Insurance Name Policy Number Policy Shanks Covered Member ID Shanks Member ID Guarantor Name 04/19/2023 1 [place] (MEDIC[place]) [id number] Harshad Ann [id number] Harshad Ann Notes Date Note Type Note Provider Name and Address Organization Details Recorded Time 03/13/2023 text/html Mr. Ann is a n 82 yoM who is referred to me by his PCP, Dr. Castañeda, regarding new penile lesion. Patient first noted this about 2 months ago. Reports no significant pain or weeping but somewhat uncomfortable. Seen today with his family who provides some of history. Fabricio Rubio MD [address] [place] [address],[address], [address], [facility] 03/13/2023 13:42:09 04/15/2023 text/html Mr. Ann is a n 82 yoM who is referred to me by his PCP, Dr. Castañeda, regarding new penile lesion. Patient first noted this about 2 months ago. Reports no significant pain or weeping but somewhat uncomfortable. Seen today with his family who provides some of history. 04/15/23:Here for follow up penile lesion no s/p excision. 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 Grade 3 moderate to poorly differentiated. Healing well. Seen today with his who provides some of the history. Fabricio Rubio MD [address] [place] [address],[address], [place], [address], [facility] 04/15/2023 12:10:26
[2025-03-04 13:10] LABS: Chloride* 103 mmol/L (96-114)
[2025-03-04 13:11] LABS: Albumin* 4.4 g/dL (3.3-5.0); Potassium* 4.1 mmol/L (3.6-5.1); Sodium* 136 mmol/L (135-149)
[2025-03-04 13:13] LABS: Blood Urea Nitrogen* 20 mg/dL (7-30); Creatinine* 1.3 mg/dL (0.5-1.5); Est. Creatinine Clearance* 48.09; Estimated Glomerular Filt Rate 55 ml/min
[2025-03-04 13:14] LABS: Alanine Aminotransferase* 20 U/L (4-50); Alkaline Phosphatase* 57 U/L (40-150); Anion Gap 7 mEq/L (7-15); Aspartate Amino Transferase* 34 U/L (12-35); Bilirubin Direct* 0.3 mg/dL (0.0-0.5); Bilirubin Total* 0.7 mg/dL (0.1-1.5); Calcium* 9.1 mg/dL (8.4-10.6); Carbon Dioxide* 26 mmol/L (20-32); Glucose* 102 mg/dL (60-115); Magnesium* 1.8 mg/dL (1.5-2.6); Prothrombin Time 27.3 Seconds
[2025-03-04 13:17] LABS: Appearance Urine Clear (Clear); Bilirubin Urine 1+ (Negative); Blood Urine Negative (Negative); Color Urine Dark yellow (Yellow); Glucose Urine Negative (Negative); Ketones Urine 1+ (Negative); Leukocyte Esterase Urine Trace (Negative); Nitrite Urine Negative (Negative); Protein Urine Trace (Negative); Specific Gravity Urine 1.015 (1.000-1.030); pH Urine 7.5 (5.0-8.5)
[2025-03-04 13:19] LABS: C Reactive Protein* < 0.5 mg/dL (0.5-1.0)
[2025-03-04 13:28] LABS: Mucus Urine Few; RBC Urine 0-2 (0-2); WBC Urine 0-2 (0-5)
[2025-03-04 13:29] LABS: SARS PCR* Negative SARS-CoV-2 (Negative)
[2025-03-04 13:29] LABS: Other Sediment Urine FEW HYALINE CASTS
[2025-03-04 13:35] LABS: NT Pro B Type NatriureticPept* 231 pg/mL; Troponin I* < 0.01 ng/mL (0.01-0.04)
[2025-03-04] MEDS: 0.9 % SODIUM CHLORIDE 250 ml 250 ML IV (13:53)
== END 2025-03-04 15:00 | disposition home or self-care (01) ==
PROVIDERS: Emergency Provider Family Medicine; PCP Family Medicine
DX: R55 Syncope and collapse (principal); R06.02 Shortness of breath; Z95.0 Presence of cardiac pacemaker; R82.998 Other abnormal findings in urine; R60.9 Edema, unspecified; Z79.01 Long term (current) use of anticoagulants
CPT/HCPCS: 36415; 71046; 80048; 80076; 81001; 83605; 83735; 83880; 84443; 84484; 85025; 85610; 86140; 87086; 87635; 93005; 94761; 96360; 99284; 99285; J7050